=== PATIENT | female | born 1940 | race Caucasian/White ===

== ENCOUNTER 2016-12-10 14:43 | Emergency (ER) | payer MEDICARE ==
[2016-12-10] MEDS ORDERED: SODIUM CHLORIDE 0.9% 1,000 ML IV ONE (16:24)
[2016-12-10] MEDS ORDERED: INSULIN REGULAR HUMAN 100 UNIT/1 ML 10 ML MDV IVP STA ×2 (16:24→17:48)
[2016-12-10] MEDS ORDERED: INSULIN REGULAR HUMAN 100 UNIT/1 ML 10 ML MDV ONE ×2 (16:51→17:51)
[2016-12-10] MEDS ORDERED: SODIUM CHLORIDE 0.9% 500 ML IV ONE (17:48)
== END 2016-12-10 19:30 | disposition home or self-care (01) ==
DX: E11.65 Type 2 diabetes mellitus with hyperglycemia (principal); E11.22 Type 2 diabetes mellitus with diabetic chronic kidney disease; I12.9 Hypertensive chronic kidney disease with stage 1 through stage 4 chronic kidney disease, or unspecified chronic kidney disease; E11.40 Type 2 diabetes mellitus with diabetic neuropathy, unspecified; N18.9 Chronic kidney disease, unspecified; Z79.4 Long term (current) use of insulin; T38.3X6A Underdosing of insulin and oral hypoglycemic [antidiabetic] drugs, initial encounter; Z91.128 Patient's intentional underdosing of medication regimen for other reason; M79.7 Fibromyalgia; G47.00 Insomnia, unspecified
CPT/HCPCS: 36415; 80053; 81003; 82009; 82803; 83690; 85025; 96360; 99284; J1815

== ENCOUNTER 2017-04-08 10:47 | Outpatient (CLI) | payer MEDICARE ==
--- NOTE | 2017-04-08 12:36 | MRI Report ---
EXAM: MRI BRAIN WITHOUT CONTRAST EXAM DATE: 04/08/2017 11:52 AM. CLINICAL HISTORY: 76-year-old with progressive memory loss COMPARISON: None. TECHNIQUE: Multiplanar, multisequence T1-weighted and fluid-sensitive MR sequences of the brain were performed. Sequences optimized for routine evaluation. Other: None. IV Contrast: None. FINDINGS: Brain Volume: Normal for age. Parenchyma/Dura: No acute parenchymal hemorrhage, mass, or midline shift. There is mild bilateral are as of T2/FLAIR signal hyperintensity seen. No areas restricted diffusion to suggest acute infarct. Th ere is gyriform cortical susceptibility artifact seen along the sulci of the bilateral frontal lobes representing cortical superficial hemosiderosis. No other abnormal areas of parenchyma susceptibility artifact seen. Pituitary: Unremarkable. Ventricles/Cisterns: No definite abnormal extra-axial fluid collection/mass seen. Ventricles and sulc i appear prominent but appropriate fixative volume loss. Cisterns are patent. Fluid is seen within Me ckel's caves. Visualized internal auditory canals appear clear. Sinuses: The visualized paranasal sinuses, mastoid air cells, middle ear cavities appear clear. Orbits: Unremarkable. Bones: Changes of hyperostosis frontalis internus. Other: The visualized major intracranial flow voids appear maintained. IMPRESSION: 1. No acute infarct, intracranial hemorrhage, mass, or hydrocephalus. 2. 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 3. Mild white matter changes that may represent sequela of chronic small vessel ischemic disease. [facility] Referring Provider Line: [phone] SITE ID: [id number]
== END 2017-04-08 10:48 | disposition home or self-care (01) ==
LOC: DI 10:47
PROVIDERS: ATTEND Family Medicine
DX: R41.3 Other amnesia (principal)
CPT/HCPCS: 70551

== ENCOUNTER 2018-04-25 07:19 | Outpatient (CLI) | payer MEDICARE | END 2018-04-25 07:20 | disposition critical access hospital (66) | LOC: EMS 07:19 | PROVIDERS: ATTEND Surgery | DX: S01.111A Laceration without foreign body of right eyelid and periocular area, initial encounter (principal); R73.09 Other abnormal glucose; W18.30XA Fall on same level, unspecified, initial encounter; Y92.098 Other place in other non-institutional residence as the place of occurrence of the external cause | CPT/HCPCS: A0425; A0429 ==

== ENCOUNTER 2018-04-25 07:46 | Emergency (ER) | payer MEDICARE ==
[2018-04-25] MEDS ORDERED: ACETAMINOPHEN 325 MG TABLET PO STA (07:54)
[2018-04-25] MEDS ORDERED: LIDOCAINE-EPINEPH-TETRACAINE 3 ML SYRINGE TOP STA (07:54)
[2018-04-25 08:03] LABS: BASOPHILS # (AUTO) 0.1 10^3/uL (0.0-0.1); BASOPHILS % (AUTO) 0.7 %; EOSINOPHILS # (AUTO) 0.1 10^3/uL (0.0-0.7); EOSINOPHILS % (AUTO) 0.6 %; HGB - HEMOGLOBIN 13.4 g/dL (12.0-16.0); LYMPHOCYTES # (AUTO) 1.8 10^3/uL (1.5-3.5); LYMPHOCYTES % (AUTO) 19.1 %; MEAN CORPUSCULAR HEMOGLOBIN 30.8 pg (27.0-31.0); MEAN CORPUSCULAR HGB CONC 33.6 g/dL (32.0-36.0); MEAN CORPUSCULAR VOLUME 91.8 fL (81.0-99.0); MEAN PLATELET VOLUME 7.8 fL (7.9-10.8); MONOCYTES # (AUTO) 0.8 10^3/uL (0.0-1.0); MONOCYTES % (AUTO) 8.3 %; NEUTROPHILS # (AUTO) 6.7 10^3/uL (1.5-6.6); NEUTROPHILS % (AUTO) 71.3 %; PLT - PLATELET COUNT 139 10^3/uL (130-450); RED BLOOD COUNT 4.35 10^6/uL (4.20-5.40); RED CELL DISTRIBUTION WIDTH 12.8 % (12.0-15.0); WHITE BLOOD COUNT 9.4 x10^3/uL (4.8-10.8)
[2018-04-25 08:07] LABS: CALCIUM 9.1 mg/dL (8.5-10.3)
--- NOTE | 2018-04-25 08:08 | ED Physician Documentation ---
History of Present Illness - Stated complaint Stated Complaint: GLF - Chief complaint Chief Complaint: Trauma Hd/Nk - Additonal information Additional information: hx from pt and EMS 77 f fall this AM and hit her head no LOC pt not sure why she fell but she is IDDM and her glucose was 67 per EMS so that is likely contributing cause lac to R brown and periorbital ecchymosis eye swollen shut always has neck pain no numbness or weakness no chest abd back hip or ext pain no recent illness such as fever cough NVD pt finally gave a urine sample shortly before [facility] came to pick her up - it was later resulted + - I called [facility] and spoke to staff Mariaelena to update her and faxed new dc instructions and rx to [facility] Hernandez Review of Systems Constitutional: denies: Fever, Chills Cardiac: denies: Chest pain / pressure Respiratory: denies: Dyspnea GI: denies: Abdominal Pain, Nausea, Vomiting : denies: Dysuria Musculoskeletal: reports: Neck pain (chronic) Neurologic: reports: Headache, Head injury. denies: Focal weakness, Numbness Endocrine: denies: Easy bruising / bleeding Immunocompromised: denies: Immunocompromised PD PAST MEDICAL HISTORY - Past Medical History Past Medical History: Yes Endocrine/Autoimmune: Type 2 diabetes - Past Surgical History Past Surgical History: Yes General: Appendectomy - Present Medications Home Medications: Ambulatory Orders Medication Instructions Recorded Confirmed Atorvastatin Calcium 1 tab PO DAILY 04/25/18 04/25/18 Cephalexin [Keflex] 500 mg PO Q6H #28 capsule 04/25/18 Cholecalciferol (Vitamin D3) 2 tab PO DAILY 04/25/18 04/25/18 [Vitamin D3] Citalopram [CeleXA] 1 tab PO DAILY 04/25/18 04/25/18 Insulin Glargine [Lantus Solostar] 47 units SQ QPM 04/25/18 04/25/18 Insulin Glargine [Lantus Solostar] 52 unit SQ DAILY 04/25/18 04/25/18 L. Acidophilus/Pectin, [place] 2 cap PO DAILY 04/25/18 04/25/18 [Acidophilus-Pectin Captab] Lisinopril 1 tab PO DAILY 04/25/18 04/25/18 Melatonin 1 tab PO QPM 04/25/18 04/25/18 Pramipexole Di-HCl [Mirapex] 1 tab PO QPM 04/25/18 04/25/18 Progesterone,Micronized 2 drops PO BID 04/25/18 04/25/18 [Progesterone Micronized] Thyroid,Pork [[place] Thyroid] 2 tab PO DAILY 04/25/18 04/25/18 Trospium Chloride 1 tab PO BID 04/25/18 04/25/18 - Allergies Allergies/Adverse Reactions: Allergies Allergy/AdvReac Type Severity Reaction Status Date / Time clindamycin Allergy Unknown Verified 04/25/18 07:52 desipramine Allergy Unknown Verified 04/25/18 07:52 nortriptyline Allergy Unknown Verified 04/25/18 07:52 oxybutynin Allergy Unknown Verified 04/25/18 07:52 Sulfa (Sulfonamide Allergy Unknown Verified 04/25/18 07:52 Antibiotics) - Social History Does the pt smoke?: No Smoking Status: Never smoker Does the pt drink ETOH?: Yes Does the pt have substance abuse?: No - Immunizations Immunizations are current?: Yes PD ED PE NORMAL - Vitals Vital signs reviewed: Yes - General General: Alert and oriented X 3 - HEENT HEENT: PERRL (R upper eyelid massivly ecchymotic and swollen but when lids retracted globe is intact PERRL EOMI, no hyphema, + vision) - Neck Neck: Other (mild diffuse TTP which pt feels is chronic but given mech of injru and glucose still < 70 will image) - Cardiac Cardiac: RRR - Respiratory Respiratory: No respiratory distress, Clear bilaterally - Abdomen Abdomen: Soft, Non tender - Back Back: No spinal TTP - Derm Derm: Normal color - Extremities Extremities: No deformity, No tenderness to palpate, Normal ROM s pain - Neuro Neuro: Alert and oriented X 3 Eye Opening: Spontaneous Motor: Obeys Commands Verbal: Oriented GCS Score: 15 Results - Vitals Vitals: Vital Signs - 24 hr 04/25/18 04/25/18 07:47 10:15 Temperature 36.8 C Heart Rate 90 81 Respiratory 18 16 Rate Blood Pressure 126/58 L 110/49 L O2 Saturation 98 99 Oxygen O2 Source Room air - Labs Labs: Laboratory Tests 04/25/18 04/25/18 04/25/18 07:50 07:50 07:50 WBC 9.4 RBC 4.35 Hgb 13.4 Hct 39.9 MCV 91.8 MCH 30.8 MCHC 33.6 RDW 12.8 Plt Count 139 MPV 7.8 L Neut # (Auto) 6.7 H Lymph # (Auto) 1.8 [place] # (Auto) 0.8 Eos # (Auto) 0.1 Baso # (Auto) 0.1 Absolute Nucleated RBC 0.00 Nucleated RBC % 0.0 PT 12.6 INR 1.1 Sodium 141 Potassium 3.7 Chloride 106 Carbon Dioxide 29 Anion Gap 6.0 BUN 28 H Creatinine 1.0 Estimated GFR (MDRD) 54 L Glucose 105 H Calcium 9.1 Troponin I Urine Color Urine Clarity Urine pH Ur Specific [place] Urine Protein Urine Glucose (UA) Urine Ketones Urine Occult Blood Urine Nitrite Urine Bilirubin Urine Urobilinogen Ur Leukocyte Esterase Urine RBC Urine WBC Urine WBC Clumps Ur Squamous Epith Cells Urine Bacteria Ur Microscopic Review Urine Culture Comments 04/25/18 04/25/18 07:50 13:30 WBC RBC Hgb Hct MCV MCH MCHC RDW Plt Count MPV Neut # (Auto) Lymph # (Auto) [place] # (Auto) Eos # (Auto) Baso # (Auto) Absolute Nucleated RBC Nucleated RBC % PT INR Sodium Potassium Chloride Carbon Dioxide Anion Gap BUN Creatinine Estimated GFR (MDRD) Glucose Calcium Troponin I < 0.04 Urine Color YELLOW Urine Clarity CLOUDY Urine pH 6.5 Ur Specific [place] 1.015 Urine Protein NEGATIVE Urine Glucose (UA) NEGATIVE Urine Ketones NEGATIVE Urine Occult Blood TRACE-LYSE Urine Nitrite POSITIVE H Urine Bilirubin NEGATIVE Urine Urobilinogen 1 (NORMAL) Ur Leukocyte Esterase LARGE H Urine RBC TNTC H Urine WBC >25 H Urine WBC Clumps PRESENT Ur Squamous Epith Cells RARE Squamous Urine Bacteria Many H Ur Microscopic Review INDICATED Urine Culture Comments INDICATED - Rads (name of study) CTH Radiology: See rad report (no acute ICH or skull fx) CT facial Radiology: See rad report (R periorbital STS no fx no retrobulbar hematoma) CT CS Radiology: See rad report (no fx, degen changes) Procedures - Laceration (location) face Length in cm: 2 Wound type: Linear Neurovascular status: Sensory intact, Motor intact Anesthesia: LET Wound Preparation: Irrigated copiously NS (tech) Skin layer closure: Dermabond Other: Patient tolerated well, Tetanus UTD Complexity: Simple PD MEDICAL DECISION MAKING - ED course ED course: pt on insulin no orals, no diabetic meds given today, blood sugar better after oral glucose and given food in ED wounds repaired CTs neg for acute injury pt finally gave a UA shortly before [facility] staff came to pick her up - it is + - recommed keflex 500 QID for 7 days - added to dc instructions so can print rx and will ask staff to fax to jessenia [place] - Sepsis Event Vital Signs: Vital Signs - 24 hr 04/25/18 04/25/18 07:47 10:15 Temperature 36.8 C Heart Rate 90 81 Respiratory 18 16 Rate Blood Pressure 126/58 L 110/49 L O2 Saturation 98 99 Oxygen O2 Source Room air Departure - Departure Disposition: 01 Home, Self Care Clinical Impression: Hypoglycemia Fall Qualifiers: Encounter type: initial encounter Qualified Code(s): W19.XXXA - Unspecified fall, initial encounter Head injury Qualifiers: Encounter type: initial encounter Qualified Code(s): S09.90XA - Unspecified injury of head, initial encounter Facial laceration Qualifiers: Encounter type: initial encounter Qualified Code(s): S01.81XA - Laceration without foreign body of other part of head, initial encounter UTI (urinary tract infection) Qualifiers: Urinary tract infection type: site unspecified Hematuria presence: without hematuria Qualified Code(s): N39.0 - Urinary tract infection, site not specified Condition: Good Instructions: ED Head Injury Closed Sleep Mon, ED Diabetes Hypoglycemia Insulin React, ED Laceration Facial Skin Glue, ED UTI Cystitis Female Follow-Up: Vika Isaacs, [facility] [employer] [Primary Care Provider] - (needs a repeat UA after completion of antibiotics to ensure blood and infection have cleared) Prescriptions: Cephalexin [Keflex] 500 mg PO Q6H #28 capsule Comments: I believe you fell because your blood sugars were low They are back up now and you have eaten Please monitor the blood sugars extra carefully for the next few days and if you are running low again call PMD to discuss changing medication doses The wound was repaired with skin glue - it is fine to bathe but do not apply any ointment because that will cause the glue to dissolve. Please read over the head injury precautions and stay with a responsible adult who check your frequently for the next 2 days - return if worse Your eyeball seems fine now but odalis follow up with your PMD for an eye recheck to make sure no blood is accumulating in the anterior chamber or behind the eyeball - tomorrow or after the holiday - also discuss your blood sugars Discharge Date/Time: 04/25/18 13:30
[2018-04-25 08:12] LABS: INR 1.1 (0.8-1.2); PT - PROTHROMBIN TIME 12.6 secs (9.9-12.6)
--- NOTE | 2018-04-25 08:32 | CT Report ---
Procedure Date: 04/25/2018 Accession Number: [id number] / [id number] Procedure: CT - Head W/O CPT Code: FULL RESULT: EXAM: CT HEAD EXAM DATE: 04/25/2018 08:16 AM. CLINICAL HISTORY: Fall, head injury. Swelling and bruising to right eye. COMPARISON: MRI BRAIN W/O 04/08/2017. TECHNIQUE: Multiaxial CT images were obtained from the foramen magnum to the vertex. Reformats: Coronal. IV contrast: None. In accordance with CT protocol optimization, one or more of the following dose reduction techniques were utilized for this exam: automated exposure control, adjustment of mA and/or KV based on patient size, or use of iterative reconstructive technique. FINDINGS: Parenchyma: No intraparenchymal hemorrhage. No evidence of mass, midline shift, or CT findings of acute infarction. Wagoner-white differentiation is distinct. Diffuse chronic microangiopathic white matter changes are evident. Extraaxial Spaces: Normal for age. No subdural or epidural collections identified. Ventricles: The ventricles and cortical sulci are enlarged, consistent with age-related tissue loss. Sinuses and orbits: Imaged paranasal sinuses, orbits, and mastoids show no significant abnormality. Bones: No evidence of fracture or calvarial defect. Other: There is superficial soft tissue swelling in the right periorbital region. IMPRESSION: 1. Generalized age-related cortical atrophic changes without evidence of acute intracranial abnormality. 2. Superficial soft tissue swelling in the right periorbital region. No intraorbital abnormality. Please see report of maxillofacial CT performed at the same time for additional detail. [facility]
--- NOTE | 2018-04-25 08:40 | CT Report ---
Procedure Date: 04/25/2018 Accession Number: [id number] / [id number] Procedure: CT - Cervical Spine W/O CPT Code: FULL RESULT: EXAM: CT CERVICAL SPINE WITHOUT CONTRAST DATE: 04/25/2018 08:16 AM. HISTORY: Fall, head injury. COMPARISONS: None. TECHNIQUE: Thin-section axial images were acquired of the cervical spine without contrast. Post-processing: Coronal and sagittal reformats. Other: None. In accordance with CT protocol optimization, one or more of the following dose reduction techniques were utilized for this exam: automated exposure control, adjustment of mA and/or KV based on patient size, or use of iterative reconstructive technique. FINDINGS: Alignment: There is straightening of normal cervical lordosis. There is grade 1 anterolisthesis of C2 on C3 measuring 2 mm and grade 1 anterolisthesis of C3 on C4 measuring 3 mm, likely degenerative. Bones: No fracture or bone lesion. Interspace Levels/Facets: C1-C2: Moderate to severe degenerative changes. C2-C3: Mild degenerative disk change and severe bilateral degenerative facet changes. C3-C4: Mild degenerative disk change and severe bilateral degenerative facet change. There is moderate left neural foraminal narrowing. C4-C5: Mild degenerative disk change and severe left degenerative facet change. There is moderate left neural foraminal narrowing. C5-C6: Severe degenerative disk change and moderate bilateral degenerative facet changes. There is moderate bilateral neural foraminal narrowing. C6-C7: Severe degenerative disk change and moderate bilateral degenerative facet change. There is moderate bilateral neural foraminal narrowing. C7-T1: Mild degenerative disk change and mild bilateral degenerative facet change. Musculature: Normal. No fatty atrophy. Other: The paravertebral and prevertebral soft tissues are unremarkable. The lung apices are clear. IMPRESSION: 1. No fracture or acute osseous abnormality identified. 2. Moderate to severe multilevel degenerative changes of the cervical spine. There is moderate neural foraminal narrowing at multiple levels bilaterally. Grade 1 anterolisthesis of C2 on C3 and C3 on C4 is likely degenerative. [facility]
--- NOTE | 2018-04-25 08:47 | CT Report ---
Procedure Date: 04/25/2018 Accession Number: [id number] / [id number] Procedure: CT - Facial Bones W/O CPT Code: FULL RESULT: EXAM: CT MAXILLOFACIAL WITHOUT CONTRAST EXAM DATE: 04/25/2018 08:16 AM. CLINICAL HISTORY: Fall, R orbit injury. COMPARISONS: CT head without contrast performed at same time. TECHNIQUE: Thin-section axial images were acquired of the face without contrast. Post-processing: Coronal and sagittal reformats. Other: None. In accordance with CT protocol optimization, one or more of the following dose reduction techniques were utilized for this exam: automated exposure control, adjustment of mA and/or KV based on patient size, or use of iterative reconstructive technique. FINDINGS: Soft Tissue: There is superficial soft tissue swelling in the right periorbital region. The infratemporal fossa and parapharyngeal spaces are unremarkable. Orbits: Symmetric and unremarkable. No retroseptal fluid or edema. Bones: No fracture or bone lesion. Temporomandibular Joints: The temporomandibular joints are symmetric and normally located. Sinuses: Normal. No mucosal thickening or fluid levels. Other: None. IMPRESSION: No facial fracture identified. There is superficial soft tissue swelling in the right periorbital region. No retroseptal fluid or edema. [facility]
[2018-04-25 10:17] VITALS: BP 110/49
[2018-04-25 13:56] LABS: BILIRUBIN,URINE NEGATIVE (NEGATIVE); GLUCOSE, URINE (UA) NEGATIVE (NEGATIVE); KETONES,URINE (UA) NEGATIVE (NEGATIVE); LEUKOCYTE ESTERASE, URINE LARGE (NEGATIVE); NITRITE,URINE POSITIVE (NEGATIVE); OCCULT BLOOD,URINE TRACE-LYSE (NEGATIVE); PH,URINE 6.5 PH (5.0-7.5); PROTEIN,URINE NEGATIVE (NEGATIVE); UROBILINOGEN,URINE 1 (NORMAL) E.U./dL (NORMAL)
[2018-04-25 13:57] LABS: CLARITY,URINE CLOUDY (CLEAR)
[2018-04-25 14:03] LABS: WBC CLUMPS,URINE PRESENT
[2018-04-25 14:04] LABS: BACTERIA,URINE Many /HPF (None Seen); RBC,URINE TNTC /HPF (0-5); SQUAMOUS EPITHELIAL CELL,UR RARE Squamous (<= Few)
== END 2018-04-25 13:30 | disposition home or self-care (01) ==
LOC: EDUNIT# → ED 07:46
DX: E11.649 Type 2 diabetes mellitus with hypoglycemia without coma (principal); S09.90XA Unspecified injury of head, initial encounter; S01.111A Laceration without foreign body of right eyelid and periocular area, initial encounter; Z79.4 Long term (current) use of insulin; W18.30XA Fall on same level, unspecified, initial encounter
CPT/HCPCS: 12011; 36415; 70450; 70486; 72125; 80048; 81001; 84484; 85025; 85610; 87086; 87181; 99283; 99284; A9270; 81003

== ENCOUNTER 2018-07-04 16:03 | Outpatient (CLI) | payer MEDICARE ==
--- NOTE | 2018-07-04 16:58 | XRAY Report ---
Reason: ACUTE SPRAIN OF LT MIDDLE FINGERS HAND LT Procedure Date: 07/04/2018 Accession Number: [id number] / [id number] Procedure: XR - Finger(s) LT CPT Code: FULL RESULT: EXAM: LEFT THIRD AND FOURTH DIGIT RADIOGRAPHY EXAM DATE: 07/04/2018 04:46 PM. CLINICAL HISTORY: ACUTE SPRAIN OF LT MIDDLE FINGERS HAND LT. COMPARISON: None. TECHNIQUE: 3 views. FINDINGS: There is dorsal and medial dislocation of the third and fourth middle phalanges relative to the proximal phalanges. There are small osseous fragments adjacent to the distal third and fourth proximal phalanges. No additional findings suspicious for fracture. Mild soft tissue swelling. IMPRESSION: Third and fourth proximal interphalangeal joint dislocation with possible small avulsion fractures. [facility]
== END 2018-07-04 16:04 | disposition home or self-care (01) ==
LOC: DI 16:03
PROVIDERS: ATTEND Family Medicine
DX: S63.283A Dislocation of proximal interphalangeal joint of left middle finger, initial encounter (principal); S63.285A Dislocation of proximal interphalangeal joint of left ring finger, initial encounter; S63.613A Unspecified sprain of left middle finger, initial encounter; S63.615A Unspecified sprain of left ring finger, initial encounter
CPT/HCPCS: 73140

== ENCOUNTER 2018-07-04 16:58 | Emergency (ER) | payer MEDICARE ==
[2018-07-04 17:27] VITALS: BP 149/66
[2018-07-04] MEDS ORDERED: BUFFERED LIDOCAINE 10 ML SYRINGE ONE (17:41)
--- NOTE | 2018-07-04 17:47 | ED Physician Documentation ---
PD HPI UPPER EXT INJURY - Stated complaint Stated Complaint: FINGER INJURIES - Chief complaint Chief Complaint: Ext Problem - History obtained from History obtained from: Patient, Caregiver - History of Present Illness Location: Left (Right-handed woman had a slip and fall and jammed her third and fourth fingers of the left hand against a door frame today. Had outpatient x- rays showing third and fourth PIP dislocations with possible small avulsion fractures and she was referred to the emergency department for reduction and splinting.) Review of Systems Unable to obtain: Dementia PD PAST MEDICAL HISTORY - Past Medical History Past Medical History: Yes Neuro: Dementia Endocrine/Autoimmune: Type 2 diabetes - Past Surgical History Past Surgical History: Yes General: Appendectomy - Present Medications Home Medications: Ambulatory Orders Medication Instructions Recorded Confirmed Atorvastatin Calcium 1 tab PO DAILY 04/25/18 04/25/18 Cephalexin [Keflex] 500 mg PO Q6H #28 capsule 04/25/18 Cholecalciferol (Vitamin D3) 2 tab PO DAILY 04/25/18 04/25/18 [Vitamin D3] Citalopram [CeleXA] 1 tab PO DAILY 04/25/18 04/25/18 Insulin Glargine [Lantus Solostar] 47 units SQ QPM 04/25/18 04/25/18 Insulin Glargine [Lantus Solostar] 52 unit SQ DAILY 04/25/18 04/25/18 L. Acidophilus/Pectin, [place] 2 cap PO DAILY 04/25/18 04/25/18 [Acidophilus-Pectin Captab] Lisinopril 1 tab PO DAILY 04/25/18 04/25/18 Melatonin 1 tab PO QPM 04/25/18 04/25/18 Pramipexole Di-HCl [Mirapex] 1 tab PO QPM 04/25/18 04/25/18 Progesterone,Micronized 2 drops PO BID 04/25/18 04/25/18 [Progesterone Micronized] Thyroid,Pork [[place] Thyroid] 2 tab PO DAILY 04/25/18 04/25/18 Trospium Chloride 1 tab PO BID 04/25/18 04/25/18 - Allergies Allergies/Adverse Reactions: Allergies Allergy/AdvReac Type Severity Reaction Status Date / Time clindamycin Allergy Unknown Verified 04/25/18 07:52 desipramine Allergy Unknown Verified 04/25/18 07:52 nortriptyline Allergy Unknown Verified 04/25/18 07:52 oxybutynin Allergy Unknown Verified 04/25/18 07:52 Sulfa (Sulfonamide Allergy Unknown Verified 04/25/18 07:52 Antibiotics) - Social History Does the pt smoke?: No Smoking Status: Never smoker Does the pt drink ETOH?: Yes Does the pt have substance abuse?: No - Immunizations Immunizations are current?: Yes PD ED PE NORMAL - Vitals Vital signs reviewed: Yes - General General: Other (She is alert and cooperative but fairly demented) - Extremities Extremities: Other (She has dorsal deformities of the third and fourth left fingers at the level of the PIP and quite tender in that area. Normal cap refill and sensation at the tip.) - Psych Psych: Normal mood, Normal affect Results - Vitals Vitals: Vital Signs - 24 hr 07/04/18 17:20 Temperature 36.8 C Heart Rate 78 Respiratory 18 Rate Blood Pressure 149/66 H O2 Saturation 100 Oxygen O2 Source Room air Procedures - Reduction Body part reduced: Left, Finger (3rd/4th at PIP) Anesthesia: Digital block (with buffered lidocaine 1% no epi) Reduction aftercare: NV intact, Alignment improved, Splint applied (dorsal 2" finberglass), Patient tolerated well PD MEDICAL DECISION MAKING - Sepsis Event Vital Signs: Vital Signs - 24 hr 07/04/18 17:20 Temperature 36.8 C Heart Rate 78 Respiratory 18 Rate Blood Pressure 149/66 H O2 Saturation 100 Oxygen O2 Source Room air Departure - Departure Disposition: 01 Home, Self Care Clinical Impression: Dislocation of left middle finger Qualifiers: Encounter type: initial encounter Qualified Code(s): S63.253A - Unspecified dislocation of left middle finger, initial encounter Dislocation of left ring finger Qualifiers: Encounter type: initial encounter Qualified Code(s): S63.255A - Unspecified dislocation of left ring finger, initial encounter Condition: Good Record reviewed to determine appropriate education?: Yes Instructions: ED Dislocation Finger Redu Follow-Up: Cristian Allen DO [Provider Admit Priv/Credential] - Comments: Keep the splint on and dry and follow-up with Dr. Allen in a week. Your blood pressure was elevated today on check into the emergency department. This does not mean that you have hypertension, it is a common phenomenon to come to the emergency department and have elevated blood pressure. I recommend that you see your primary care physician within the week to have it rechecked when you are feeling better.
== END 2018-07-04 17:59 | disposition home or self-care (01) ==
LOC: ED 16:58
DX: S63.283A Dislocation of proximal interphalangeal joint of left middle finger, initial encounter (principal); S63.285A Dislocation of proximal interphalangeal joint of left ring finger, initial encounter; S63.613A Unspecified sprain of left middle finger, initial encounter; S63.615A Unspecified sprain of left ring finger, initial encounter; W23.0XXA Caught, crushed, jammed, or pinched between moving objects, initial encounter; W01.10XA Fall on same level from slipping, tripping and stumbling with subsequent striking against unspecified object, initial encounter; Y92.009 Unspecified place in unspecified non-institutional (private) residence as the place of occurrence of the external cause; E11.9 Type 2 diabetes mellitus without complications; R03.0 Elevated blood-pressure reading, without diagnosis of hypertension; F03.90 Unspecified dementia, unspecified severity, without behavioral disturbance, psychotic disturbance, mood disturbance, and anxiety
CPT/HCPCS: 26770; 73140; 99283

== ENCOUNTER 2020-01-22 11:20 | Outpatient (CLI) | payer MEDICARE ==
--- NOTE | 2020-01-22 14:50 | CONSULTATION NOTE ---
Palliative Care Consultation - Referral Referring Provider: Dr. Cristian Allen Time of Visit: [id number] Referral setting: Assisted living ([facility]) - Information Sources Records reviewed: Previous records reviewed History/Review of Systems obtained from: Patient, Family (ydzgntl-em-ixc/DPOA Catalino More), Caregiver, Nursing Exam limitations: Clinical condition (poor historian due to dementia) - History of Present Illness Brief History of Present Illness: This is a 79-year-old female who resides at [facility] who was seen and evaluated today for initial palliative care consultation due to her advancing dementia and difficulty to leave the facility to attend primary care physician appointments. The patient has a standing history of dementia, unclear how long this is been diagnosed, and she has had progressive cognitive loss per her tcfkfun-js-kkr/D FLORA Bae. When the patient's was still living, Catalino reported that the patient was aware that she was beginning to lose her memory and at times will lose the thread of story in the course of a conversation. The patient's became acutely ill and at that time it became quite apparent during his hospitalization that she was unable to care for herself. Ultimately the patient's spouse was discharged from the hospital with hospice services with 24-hour caregiving for both himself and the patient prior to his . After the patient's spouse's she relocated to [facility] where she did very well for the first year and then her caregiving needs increased. Per her ypoytvw-tq-gfe/D BRYNNVeena Bae she began falling increasingly. At that time she was then transitioned to [facility] for additional caregiving needs in April 2018. The patient's kcjggrw-ja-jqg, Catalino, reports that the patient initially had depressive symptoms after the of her but recently in the last few months when he is visited reports that she has been in better spirits. She no longer remembers her bbuccwz-yc-jsx when he visits she will get easily distracted. Even when recent longtime friends visited the patient she did not recall them visiting her who they were. The staff reports that the patient will have outbursts of agitation and aggression. She at times will grab the caregivers hand tightly or will lash out with a fist that is shaking. Overall she is quick to have anger which occurs almost daily. This is been going on for approximately 1 year, and at that initial onset her citalopram dose was increased to 20 mg daily. The staff have noticed an overall increase in the patient's agitation and aggression over the last year. She will also refuse a lot with the caregiving staff for showering and incontinent care. Of note she is quite agreeable and does not resist with the male tech. The patient has a history of type 2 diabetes and is presently managed on Lantus 35 units subcutaneously administered twice daily. At times she will be resistant to subcutaneous injections but again will be receptive to a male family practice medical doctor administering. Upon review of blood glucose levels the patient has had some noted lows in the morning. She has had an episode of the lowest of 35 noted on 01/02. She also has had an episode of 74, 91, and 90 3 in the morning. Her blood glucose levels prior to bed have ranged 122 197. Her last hemoglobin A1c on 12/07/2019 was 6.2%. The patient has had some weight loss since July 2019 from 216 pounds to 209.2 pounds in December 2019. She does have a history of some lower extremity edema and is on Lasix daily. Some of the fluctuation of her weight is likely due to her edema. Staff reports that she has a good appetite. She is on a diabetic diet. Medical/Surgical History - Past Medical History Cardiovascular: reports: Hypertension, High cholesterol Respiratory: reports: None Neuro: Dementia Neuro: reports: Peripheral neuropathy Endocrine/Autoimmune: reports: Type 2 diabetes, HyPOthyroidism GI: reports: None : reports: Incontinence, Other (CKD; Overactive bladder) HEENT: reports: None Psych: reports: Depression, Other (Insomnia) Musculoskeletal: reports: Fibromyalgia, Other (Spinal stenosis) Other Past Medical History: h/o ITP - Past Surgical History General: reports: Appendectomy - Substance History Use: Uses substance without health or social issues: NONE Social History - Living Situation Living arrangement: Assisted living Support System: The patient grew up in the [facility]. She was for over a 50 years to her who is now . They had no children. Her on hospice services. The patient's nhfhewr-lc-nei is her D POA, Catalino rosado ([phone]). 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 She and her spent most weekends along the [place] where they would go hiking, mushrooming and the patient would do photography. Later in life she picked up an interest in gym stones and collecting those. Overall she and her would load up their pickup camper and would go out into the wilderness per her fchuxib-tl-wkp's report. The patient was an only child to her parents with no siblings. Her brother in law of reports that she was a "spoiled suzanne" and was also quite "a looker." Family History - Family History Family History: Mother: , Father: Family History Comment/Other: Father-alcoholism Mother-dementia, in 80s Medications/Allergies - Medications Home Medications: Ambulatory Orders Medication Instructions Recorded Confirmed Atorvastatin Calcium 40 mg PO DAILY 04/25/18 01/22/20 Citalopram [CeleXA] 20 mg PO DAILY 04/25/18 01/22/20 L. Acidophilus/Pectin, [place] 2 cap PO DAILY 04/25/18 01/22/20 [Acidophilus-Pectin Captab] Trospium Chloride 20 mg PO BID 04/25/18 01/22/20 lisinopriL [Lisinopril] 1 tab PO DAILY 04/25/18 01/22/20 Acetaminophen [Tylenol] 650 mg PO Q6H PRN 01/22/20 01/22/20 Albuterol Sulfate [Albuterol 1 puffs IN Q4H PRN 01/22/20 01/22/20 Sulfate Hfa] Bisacodyl Supp [Dulcolax Supp] 10 mg NE DAILY PRN 01/22/20 01/22/20 Cholecalciferol (Vitamin D3) 2,000 unit PO DAILY 01/22/20 01/22/20 [Vitamin D3] Furosemide 20 mg PO DAILY 01/22/20 01/22/20 Guaifenesin/Dextromethorphan 10 ml PO Q6H PRN 01/22/20 01/22/20 [Guaifenesin-Dm 100-10 mg/5 ml] Ibuprofen 200 mg PO TID PRN 01/22/20 01/22/20 Insulin Glargine [Lantus Solostar] 32 units SQ QPM 01/22/20 01/22/20 Insulin Glargine [Lantus Solostar] 35 units SQ QDAC 01/22/20 01/22/20 Loperamide HCl [Loperamide] PRN 01/22/20 Mag Hydrox/Aluminum Hyd/Simeth 30 ml PO Q4H PRN 01/22/20 01/22/20 [Antacid Anti-Gas Liquid] Magnesium Citrate 150 ml PO DAILY PRN 01/22/20 01/22/20 Magnesium Hydroxide [Milk of 30 ml PO DAILY PRN MDD No BM after 01/22/20 01/22/20 Magnesia] 3 days Pramipexole Di-HCl [Mirapex] 0.125 mg PO QPM 01/22/20 01/22/20 Thyroid,Pork [[place] Thyroid] 90 mg PO DAILY 01/22/20 01/22/20 Trazodone HCl 25 mg PO QPM 01/22/20 01/22/20 - Allergies Allergies/Adverse Reactions: Allergies Allergy/AdvReac Type Severity Reaction Status Date / Time clindamycin Allergy Unknown Verified 01/22/20 15:56 desipramine Allergy Unknown Verified 01/22/20 15:56 nortriptyline Allergy Unknown Verified 01/22/20 15:56 oxybutynin Allergy Unknown Verified 01/22/20 15:56 Sulfa (Sulfonamide Allergy Unknown Verified 01/22/20 15:56 Antibiotics) Review of Systems - Constitutional Constitutional: reports: Weight loss (weight 209.2lb 12/27/2019; 07/26/2019 weight 216lb). denies: Fever, Chills - Eyes Eyes: reports: Corrective lenses - Ears, Nose & Throat Ears, Nose & Throat: denies: Hearing loss - Cardiovascular Cardiovascular: reports: Edema. denies: Palpitations, Chest pain - Respiratory Respiratory: denies: Cough, Wheezing - Gastrointestinal Gastrointestinal: reports: Good appetite. denies: Abdominal pain, Constipation, Diarrhea, Vomiting - Genitourinary Genitourinary: reports: Incontinence. denies: Dysuria - Musculoskeletal Musculoskeletal: reports: Muscle weakness. denies: Assistive devices - Integumentary Integumentary: denies: Rash - Neurological Neurological: reports: General weakness, Memory problems - Psychiatric Psychiatric: reports: Depression, Aggitation - Endocrine Endocrine: reports: Diabetes type 2, Hypothyroidism - Hematologic/Lymphatic Hematologic/Lymphatic: denies: Recurrent infections - All Other Systems All Other Systems: reports: Reviewed and negative, Other (ROS limited as patient is a poor historian due to dementia. ROS obtained from caregiver and family.) Physical Exam - Vital Signs Temperature: 36.9 C Pulse Rate: 78 O2 Saturation: 96 (on RA at rest) Blood Pressure: 121/75 (right wrist cuff) - Physical Exam General Appearance: positive: No acute distress, Alert, Other (OOB in chair in common area with legs in dependent position) Eyes Bilateral: positive: Normal inspection ENT: positive: No signs of dehydration Neck: positive: No JVD Cardiovascular: positive: Regular rate & rhythm, No murmur Respiratory: positive: No respiratory distress, Breath sounds nml Abdomen: positive: Non-tender, Soft, Nml bowel sounds, Obese Skin: positive: Dryness (generalized) Extremities: positive: Full ROM, Other (+1 pitting BLE edema) Neurologic/Psychiatric: positive: Disoriented to place, Disoriented to time, Other (No agitation noted on examination, but easily distracted and unable to fully string together a conversation with [employer].) Palliative Care - POLST Patient has POLST: Yes POLST Status: DNR, Comfort Measures Pain: No pain (Patient has a history of fibromyalgia) Nausea: None Anorexia: None Depression: Mild (1-3) Sleep: Other (history of insomnia. will not sleep in her room and will sleep in chair in common area.) Constipation: No, Managed Performance Status: Patient remains ambulatory without assistive devices. Occasionally she wall hold the hands of caregivers during ambulation and there is standby assistance during ambulation. She is incontinent of urine and at times will refuse incontinence care. She is able to self feed. No recent falls. PPS score 60% - Palliative Care Discussion: The patient has had a steady cognitive decline that her dcvqlxe-ph-ynf/Leigh BRYNNCatalino Curiel is aware of and acknowledges. The patient does not have any immediate family therefore healthcare decisions fall to her uqncrtj-wf-afs Catalino. Catalino has experienced the loss of both his brother and his sister who were on hospice services. His sister was also followed by palliative care and he is familiar with the service and found great benefit from that additional care. He acknowledges that the patient can be easily agitated as she was a "spoiled suzanne" growing up as she was an only child" the apple of her parents I." He recognizes the transitions that have occurred from the patient living independently, [facility] and [facility] to [facility]. He is very pleased with the care that the patient has received at [facility] by the staff and both caregivers and nursing. In exploring goals of care he wishes to focus on making the patient comfortable. POLST in the patient's chart is a DN AR with limited interventions. POLST reviewed in light of the patient's D POA's desire for her to be comfortable and questions and answers addressed. POLST updated to be DN AR, comfort based interventions, antibiotics as needed for symptom management with no artificial nutrition. Results - Lab Results Lab results reviewed: Yes Lab and Imaging Results: 01/11/2020: WBC 7.5, H/H 14.643.2%, Plt 144 12/11/2019: WBC 7.2, H/H 13.4/39.9%, Plt 122, Sodium 144, Potassium 3.7, BUN 22, Cr 1.07, GFR 50, AST 16, ALT 20, Total cholesterol 83, HDL 30, LDL 37, HgA1C 6.2% Impression and Recommendations - Palliative Care Impression: This is a 79-year-old female who resides in assisted living with increasing cognitive decline secondary to dementia with a past medical history of hypertension, hyperlipidemia, and fibromyalgia, chronic kidney disease, type 2 diabetes, and neuropathy. She has some underlying depression that has been managed with citalopram but has outbursts of agitation and aggression towards staff and at times other residents. Palliative care to continue to provide symptom management, anticipatory guidance, and advanced care planning. Recommendations/Counseling Done: 1. Dementia with behavioral disturbances. Chronic. Progressive. Supportive Care. Fall precautions. Given the patient's history of insomnia with agitation and aggression will initiated a low dose trazodone as a trial with 25mg in the evening. reviewed purpose, dose and side effects with uliznjv-jn-cvn/KAVIN Bae and in agreement for trial. The trazodone is an adjunct to citralopram. Advised may take 2-3 weeks to see effect of medication. Continue to redirect behaviors within the facility. Given the patient's advanced age, dementia and chronic co-morbities, a gradual decline is expected. 2. Diabetes Mellitus, Type II. Controlled. Noted blood glucose lows in the morning (see HPI for full details). Last HgA1C 6.2%. Decrease Lantus to 35unit qAM and 32 units qPM and hold if blood glucose level less than 100. Given patient's advanced age and risk for falls, wish to reduce hypoglycemic risk and reviewed with KAVIN/uqtsdvh-zo-vya, John. Goal HgA1C 7-8% given advanced age. 3. Depression. Controlled. Continue citralopram as ordered. 4. Insomnia. History of insomnia. D/c melatonin. start trazodone 25mg qhs. see Dx Dementia with behavioral disturbances for additional details. 5. BLE edema. Start weekly weights and notify if +/- of 3lb per week. Encourage BLE elevation when OOB every shift. Continue furosemide 20mg daily. Monitor and adjust diuretic therapy as needed for symptom management. 6. HLD. Controlled on atorvastatin, continue. As goals focused on comfort, consider discontinuation of statin therapy in the future given time to benefit and patient's life expectancy with no prior history of CVA or [place]. 7. Advance care planning. POLST reviewed and updated with amgjfiw-zi-und/Catalino PARRY. POLST to remain DN AR now with comfort measures, antibiotic therapy for symptom management, and no artificial nutrition by tube. Form signed by verbal consent and to be mailed to DPOA to be signed and returned given present coronavirus pandemic. Patient's Leigh HINES wishes to focus on making her life comfortable. Palliative care to continue to explore goals of care. Time Spent: Total time spent 60 minutes with more than 50% of this spent in counseling and coordination of care with jonlftq-fs-qbl/Catalino VALE via phone in patient's presence and nursing staff; review of dementia progression; explaination of palliative philosophy; completion of POLST; review of symptom management and anticipatory guidance. disclaimer: The chart note was formulated using voice recognition technology and unfortunately sound alike errors may occur.
== END 2020-01-22 11:21 | disposition home or self-care (01) ==
LOC: PC 11:20
PROVIDERS: ATTEND Nurse Practitioner Family
DX: Z51.5 Encounter for palliative care (principal); F03.91 Unspecified dementia, unspecified severity, with behavioral disturbance; F32.9 Major depressive disorder, single episode, unspecified; R63.4 Abnormal weight loss; R60.0 Localized edema; R32 Unspecified urinary incontinence; E11.22 Type 2 diabetes mellitus with diabetic chronic kidney disease; I12.9 Hypertensive chronic kidney disease with stage 1 through stage 4 chronic kidney disease, or unspecified chronic kidney disease; N18.9 Chronic kidney disease, unspecified; E11.40 Type 2 diabetes mellitus with diabetic neuropathy, unspecified; E78.5 Hyperlipidemia, unspecified; R53.1 Weakness; E03.9 Hypothyroidism, unspecified; Z79.899 Other long term (current) drug therapy; Z79.4 Long term (current) use of insulin; Z66 Do not resuscitate

== ENCOUNTER 2020-01-30 12:30 | Outpatient (CLI) | payer MEDICARE ==
--- NOTE | 2020-01-30 17:51 | CONSULTATION NOTE ---
Palliative Care Follow Up - Referral Referring Provider: Dr. Cristian Allen Time of Visit: 7906-0330 Referral setting: Assisted living Referral Reason: F/u fever/Dementia - Information Sources Records reviewed: Previous records reviewed History/Review of Systems obtained from: Patient, Caregiver (caregivers at [facility]), Nursing Exam limitations: Clinical condition (Poor historian due to dementia) - History of Present Illness Update Brief HPI Update: This is a 79-year-old female with advanced dementia who is seen in follow-up today for evaluation due to being febrile yesterday, 01/29/2020. Was notified by nursing staff at [facility] that the patient had a temperature of 101.2 Fahrenheit. The patient and the rest of the patient's sons at the facility are on route chain temperature checks due to the coronavirus pandemic. Staff reported that the patient was without a cough, shortness of breath and no other residents have been febrile. They provided a cool compress as well as Tylenol due to the patient reporting generalized body pain which was effective. She continues to consume most of her meals. Her temperature decreased to 98.9 after the above-mentioned interventions. Requested that the staff obtain a clean-catch urine and send that for a UA with Ms. Reyes with culture if indicated and if unable to obtain a clean-catch urine a straight cath. A straight cath was obtained to day by the staff with the urine dipstick positive for leukocytes and nitrites. The patient continues to report generalized body aches. She denies dysuria as does the staff. The patient also report suprapubic pain. No history of constipation presently. No recent urinary tract infection. When speaking to the caregivers they report that the patient is requiring additional assistance with her overall caregiving needs in the last several days. She is requiring help with feeding which is typically not the case for her. She is consuming most of her meals. She is also requiring assistance with mobility and is presently utilizing a sit to stand for transfers. The patient has a history of diabetes mellitus and is on blood glucose checks twice daily. Her morning blood glucose levels have ranged from 1 10-1 64 and in the evening 129 11/26/2006. Patient has a past medical history of hypertension, hyperlipidemia, dementia, peripheral neuropathy, type 2 diabetes mellitus, hypothyroidism, incontinence, chronic kidney disease, overactive bladder, depression, insomnia, fibromyalgia, spinal stenosis, and history of ITP. Social History - Living Situation Living arrangement: Assisted living Support System: The [facility] at [facility]. She grew up in the [facility]. She has no children and is . Her nrjfedl-at-tci is her D POA, Catalino More ([phone],. See social history from visit 01/22/2024 additional details. Medications/Allergies - Medications Home Medications: Ambulatory Orders Medication Instructions Recorded Confirmed Atorvastatin Calcium 40 mg PO DAILY 04/25/18 01/22/20 Citalopram [CeleXA] 20 mg PO DAILY 04/25/18 01/22/20 L. Acidophilus/Pectin, Mclean 2 cap PO DAILY 04/25/18 01/22/20 [Acidophilus-Pectin Captab] Trospium Chloride 20 mg PO BID 04/25/18 01/22/20 lisinopriL [Lisinopril] 1 tab PO DAILY 04/25/18 01/22/20 Acetaminophen [Tylenol] 650 mg PO Q6H PRN 01/22/20 01/22/20 Albuterol Sulfate [Albuterol 1 puffs IN Q4H PRN 01/22/20 01/22/20 Sulfate Hfa] Bisacodyl Supp [Dulcolax Supp] 10 mg [place] DAILY PRN 01/22/20 01/22/20 Furosemide 20 mg PO DAILY 01/22/20 01/22/20 Guaifenesin/Dextromethorphan 10 ml PO Q6H PRN 01/22/20 01/22/20 [Guaifenesin-Dm 100-10 mg/5 ml] Ibuprofen 200 mg PO TID PRN 01/22/20 01/22/20 Insulin Glargine [Lantus Solostar] 32 units SQ QPM 01/22/20 01/22/20 Insulin Glargine [Lantus Solostar] 35 units SQ QDAC 01/22/20 01/22/20 Loperamide HCl [Loperamide] PRN 01/22/20 Mag Hydrox/Aluminum Hyd/Simeth 30 ml PO Q4H PRN 01/22/20 01/22/20 [Antacid Anti-Gas Liquid] Magnesium Citrate 150 ml PO DAILY PRN 01/22/20 01/22/20 Magnesium Hydroxide [Milk of 30 ml PO DAILY PRN MDD No BM after 01/22/20 01/22/20 Magnesia] 3 days Pramipexole Di-HCl [Mirapex] 0.125 mg PO QPM 01/22/20 01/22/20 Thyroid,Pork [[place] Thyroid] 90 mg PO DAILY 01/22/20 01/22/20 Trazodone HCl 25 mg PO QPM 01/22/20 01/22/20 Nitrofurantoin [Macrobid] 100 mg PO BID MDD x5days for UTI 01/30/20 01/30/20 - Allergies Allergies/Adverse Reactions: Allergies Allergy/AdvReac Type Severity Reaction Status Date / Time clindamycin Allergy Unknown Verified 01/22/20 15:56 desipramine Allergy Unknown Verified 01/22/20 15:56 nortriptyline Allergy Unknown Verified 01/22/20 15:56 oxybutynin Allergy Unknown Verified 01/22/20 15:56 Sulfa (Sulfonamide Allergy Unknown Verified 01/22/20 15:56 Antibiotics) Review of Systems - Constitutional Constitutional: reports: Fever (tempearture 101.2F on 01/29/2020), Weakness, Weight loss (weight 208.6lb on 01/24/2020; previous weight 209.2lb on 12/27/2019; 216lb 07/26/2019). denies: Chills - Ears, Nose & Throat Ears, Nose & Throat: denies: Nasal congestion - Cardiovascular Cardiovascular: denies: Palpitations, Chest pain - Respiratory Respiratory: denies: Cough, SOB at rest - Gastrointestinal Gastrointestinal: reports: Good appetite. denies: Abdominal distention, Constipation, Diarrhea, Vomiting - Genitourinary Genitourinary: reports: Incontinence, Other (+suprapubic pain). denies: Dysuria - Musculoskeletal Musculoskeletal: reports: Muscle weakness, Assistive devices, Other (generalized body pain) - Integumentary Integumentary: denies: Rash - Neurological Neurological: reports: General weakness, Memory problems - Psychiatric Psychiatric: reports: Depression - Endocrine Endocrine: reports: Diabetes type 2, Hypothyroidism - Hematologic/Lymphatic Hematologic/Lymphatic: denies: Recurrent infections - All Other Systems All Other Systems: reports: Reviewed and negative (ROS limited as patient is a poor historian due to dementia. ROS obtained from caregiver and nursing staff at [facility].) Physical Exam - Vital Signs Temperature: 36.7 C Pulse Rate: 74 O2 Saturation: 96 (on RA at rest) Blood Pressure: 122/59 (left wrist cuff) - Physical Exam General Appearance: positive: No acute distress, Alert, Other (sitting up in bed) Eyes Bilateral: positive: Normal inspection ENT: positive: No signs of dehydration Neck: positive: Trachea midline Cardiovascular: positive: Regular rate & rhythm, No murmur Respiratory: positive: No respiratory distress, Breath sounds nml, Other (No noted cough on assessment). negative: Wheezes Abdomen: positive: Soft, Nml bowel sounds, Obese, Other (+suprapubic tenderness to palpation with bladder nondistended) Skin: positive: Dryness Extremities: positive: Full ROM, No pedal edema Neurologic/Psychiatric: positive: Disoriented to place, Disoriented to time, Other (episodes of world salad when asking questions during examination.) Palliative Care - POLST Patient has POLST: Yes POLST Status: DNR, Comfort Measures Pain: Comment (generalized body pain) Anorexia: None Sleep: Sleep improved, Other (history of insomnia) Constipation: Managed Performance Status: In the last few days the patient has had a functional decline where she has required sit to stand for transfers when typically she ambulates independently without assistive devices. She also is requiring assistance with feeding by the caregiving staff. She is incontinent of urine. No recent falls. - Palliative Care Discussion: The patient has had a recent change in functional status with a decline requiring increased assistance from the caregivers and nursing staff at her assisted living facility[facility]. Yesterday the patient was noticed to be febrile with a T-max of 101.2 Fahrenheit. She is afebrile today but continues to work port complaints of generalized body pain and suprapubic pain. The patient was straight cathed today for obtaining a urine specimen which was positive for leukocytes and nitrates. Upon review with patient's wmkrebf-kk-xws/D POA due to the patient's urinary findings and discomfort will initiate Macrobid as an antibiotic for treatment of urinary tract infection for 5 days. The patient's isstdhm-dy-hxg wishes to focus on making the patient comfortable. Results - Lab Results Lab results reviewed: Yes Lab and Imaging Results: UA dipstick: ++leukocytes +nitrites All others negative Impression and Recommendations - Palliative Care Impression: This is a 79-year-old female with a history of dementia who was febrile y esterday with generalized body pain and suprapubic pressure with urinary dipstick positive for urinary tract infection with leukocytes and nitrates. Given these clinical findings will initiate antibiotic therapy for 5 days with urine culture pending. Palliative care to continue provide symptom management and anticipatory guidance. Recommendations/Counseling Done: 1. UTI. Patient febrile with T-max 101.2 Fahrenheit yesterday, afebrile today with continued generalized body pain as well as suprapubic pain upon examination with positive leukocytes and nitrites on UA dipstick, indicative of urinary tract infection. No noted increase in patient's blood glucose levels secondary to infection.Initiate Macrobid 100 mg twice daily x5 days. Urine culture and sensitivity with urinalysis and microscopy pending. Will follow with urine culture results and change antibiotic as indicated. Reviewed medication, purpose, dose and side effects with tfxlscv-zf-Tms/D FLORA Bae with understanding verbalized agreement. 2. Bilateral lower extremity edema. Euvolemic today without on lower extremity edema. Presently on weekly weights. We will continue to monitor. Continue fur osemide 20 mg daily as ordered. Adjust diuretic therapy as needed for symptom management. 3. Advance care planning. POLST and facility remains DN AR with comfort measures. Discussed with the patient's ndrnlmd-lh-qil/D BRYNNA Catalino, were regarding polypharmacy and medication burden and will slowly reduce pill burden and D POA in agreement. DC vitamin D supplementation after review with DPOA and in agreement. Time Spent: CPT 75382 Reviewed plan of care with nursing staff at [facility], patient's D POA/kzwualj-bt-zok Catalino. Reviewed with thscjnj-nm-igb signs and symptoms of urinary tract infection as well as antibiotic therapy with explanation of treatment course and side effects of antibiotic therapy with fnpmejs-ry-vxr with understanding verbalized. Total time spent X with greater than 50% of time spent in counseling family and patient regarding escalation vs de-escalation of care, palliative/hospice philosophy as well as care coordination, review of pain and symptom management and anticipatory guidance. Disclaimer: The chart note was formulated using voice recognition technology and unfortunately sound alike errors may occur.
== END 2020-01-30 12:31 | disposition home or self-care (01) ==
LOC: PC 12:30
PROVIDERS: ATTEND Nurse Practitioner Family
DX: Z51.5 Encounter for palliative care (principal); N39.0 Urinary tract infection, site not specified; R50.9 Fever, unspecified; R52 Pain, unspecified; R53.1 Weakness; E11.9 Type 2 diabetes mellitus without complications; R60.0 Localized edema; Z79.899 Other long term (current) drug therapy; Z79.4 Long term (current) use of insulin; Z66 Do not resuscitate

== ENCOUNTER 2020-02-09 09:00 | Outpatient (CLI) | payer MEDICARE ==
--- NOTE | 2020-02-09 20:05 | CONSULTATION NOTE ---
Palliative Care Follow Up - Referral Referring Provider: Dr. Cristian Allen Time of Visit: [id number] Referral setting: Assisted living Referral Reason: f/u UTI/Dementia - Information Sources Records reviewed: Previous records reviewed History/Review of Systems obtained from: Caregiver, Nursing Exam limitations: Clinical condition (poor historian due to dementia) - History of Present Illness Update Brief HPI Update: This is a 79-year-old female with advanced dementia who is seen in follow-up today for urinary tract infection. Patient was febrile on 01/2804/13/2020 with a T-max of 101.2 Fahrenheit. The patient was without respiratory symptoms, cough or shortness of breath. A straight cath was performed to obtain a urine specimen which was sent for urinalysis and culture that demonstrates treated growth of E. coli greater than 100,000 CFU per mL which was sensitive to Macrobid. She has completed a 5-day course of Macrobid with some improvement of her clinical status but she is not at baseline. At the onset of her symptoms she was requiring increased assistance by staff for feeding and she was no longer ambulatory dante given reports of generalized body pain. The patient has remained afebrile. She is now getting up out of bed but is still not walking. The staff are using a sit to stand and the patient is using a wheelchair to be out in the common area. She is continuing to not feed herself and is requiring to be fed by staff. She is typically consuming the majority of her meals again, with assistance. Caregiving staff report that when she is standing to transfer to the wheelchair she is making facial grimacing indicating pain to her bilateral knees. Staff also report noticing an increase of a rash to her abdominal folds. It has not spread. There is no evidence of pruritus as the patient is not itching that area. Past medical history includes hypertension, hyperlipidemia, dementia, peripheral neuropathy, type 2 diabetes, hypothyroidism, incontinence, chronic kidney disease, overactive bladder, depression, insomnia, fibromyalgia, spinal stenosis, and history of ITP. Social History - Living Situation Living arrangement: Assisted living Support System: The patient resides at [facility]. She grew up in [facility]. She is and has no children. Her ewipgty-on-lhb is her D POA, Catalino More ([phone] (. Medications/Allergies - Medications Home Medications: Ambulatory Orders Medication Instructions Recorded Confirmed Citalopram [CeleXA] 20 mg PO DAILY 04/25/18 02/10/20 Trospium Chloride 20 mg PO BID 04/25/18 02/10/20 lisinopriL [Lisinopril] 1 tab PO DAILY 04/25/18 02/10/20 Acetaminophen [Tylenol] 650 mg PO Q6H PRN 01/22/20 02/10/20 Albuterol Sulfate [Albuterol 1 puffs IN Q4H PRN 01/22/20 02/10/20 Sulfate Hfa] Bisacodyl Supp [Dulcolax Supp] 10 mg [place] DAILY PRN 01/22/20 02/10/20 Furosemide 20 mg PO DAILY 01/22/20 02/10/20 Guaifenesin/Dextromethorphan 10 ml PO Q6H PRN 01/22/20 02/10/20 [Guaifenesin-Dm 100-10 mg/5 ml] Ibuprofen 200 mg PO TID PRN 01/22/20 02/10/20 Insulin Glargine [Lantus Solostar] 32 units SQ QPM 01/22/20 01/22/20 Insulin Glargine [Lantus Solostar] 35 units SQ QDAC 01/22/20 01/22/20 Loperamide HCl [Loperamide] PRN 01/22/20 Mag Hydrox/Aluminum Hyd/Simeth 30 ml PO Q4H PRN 01/22/20 01/22/20 [Antacid Anti-Gas Liquid] Magnesium Citrate 150 ml PO DAILY PRN 01/22/20 01/22/20 Magnesium Hydroxide [Milk of 30 ml PO DAILY PRN MDD No BM after 01/22/20 01/22/20 Magnesia] 3 days Pramipexole Di-HCl [Mirapex] 0.125 mg PO QPM 01/22/20 02/10/20 Thyroid,Pork [[place] Thyroid] 90 mg PO DAILY 01/22/20 02/10/20 Trazodone HCl 25 mg PO QPM 01/22/20 02/10/20 Acetaminophen 650 mg PO BID 02/10/20 02/10/20 Nystatin 1 applic TP BID MDD x7 days 02/10/20 02/10/20 Senna [Senokot] 8.6 mg PO DAILY MDD hold for loose 02/10/20 02/10/20 stools - Allergies Allergies/Adverse Reactions: Allergies Allergy/AdvReac Type Severity Reaction Status Date / Time clindamycin Allergy Unknown Verified 01/22/20 15:56 desipramine Allergy Unknown Verified 01/22/20 15:56 nortriptyline Allergy Unknown Verified 01/22/20 15:56 oxybutynin Allergy Unknown Verified 01/22/20 15:56 Sulfa (Sulfonamide Allergy Unknown Verified 01/22/20 15:56 Antibiotics) Review of Systems - Constitutional Constitutional: reports: Other (weight 208.6lb 01/24/2020). denies: Fever, Chills - Ears, Nose & Throat Ears, Nose & Throat: denies: Dry mouth - Cardiovascular Cardiovascular: denies: Palpitations, Chest pain - Respiratory Respiratory: denies: Cough, SOB at rest - Gastrointestinal Gastrointestinal: reports: Constipation, Good appetite. denies: Abdominal pain, Diarrhea, Vomiting - Genitourinary Genitourinary: reports: Incontinence. denies: Dysuria, Hematuria - Musculoskeletal Musculoskeletal: reports: Muscle weakness, Joint pain, Assistive devices - Integumentary Integumentary: reports: Rash - Neurological Neurological: reports: General weakness, Memory problems - Psychiatric Psychiatric: reports: Depression - Endocrine Endocrine: reports: Diabetes type 2, Hypothyroidism - Hematologic/Lymphatic Hematologic/Lymphatic: denies: Recurrent infections - All Other Systems All Other Systems: reports: Reviewed and negative Physical Exam - Vital Signs Temperature: 36.7 C Pulse Rate: 90 O2 Saturation: 97 (on RA at rest) Blood Pressure: 135/80 - Physical Exam General Appearance: positive: No acute distress, Alert, Other (OOB in wheelchair sitting at dining table finishing breakfast with assistance) Eyes Bilateral: positive: Normal inspection ENT: positive: No signs of dehydration Neck: positive: Trachea midline Cardiovascular: positive: Regular rate & rhythm, No murmur Respiratory: positive: No respiratory distress, Breath sounds nml Abdomen: positive: Non-tender, Soft, Nml bowel sounds, Obese, Other (bladder nondistended) Skin: positive: Other (venous stasis changes bilateral feet; erythematous under bilateral abdominal folds with left greater than right consistent with candidiasis) Extremities: positive: No pedal edema, Other (+trace creptius bilateral knees with no noted deformity on examination) Neurologic/Psychiatric: positive: Disoriented to place, Disoriented to time Palliative Care - POLST Patient has POLST: Yes POLST Status: DNR, Comfort Measures Pain: Comment (bilateral knee pain) Sleep: Sleeps well Constipation: Intermittent constipation Performance Status: Patient has had a change in function but has not returned to baseline after urinary tract infection. She is requiring a sit to stand for transfers to her wheelchair. At baseline she has been ambulating independently without assistive devices or would hold on 2 staff members. She continues to require assistance with feeding by the caregiving staff. She is incontinent of urine. No recent falls. - Palliative Care Discussion: The patient has had a acute change in her functional status and ability requir ing increased assistance from the caregiving and nursing staff at [facility]. Staff deny coughing during meals and she is requiring continued assistance with feeding. It is unclear if this will new be her new baseline secondary to her recent urinary tract infection or if she will have improvement. The patient is demonstrating signs of discomfort to her bilateral knees when she is standing to the caregivers.Discussed with the patient's eyfinlp-ku-aau/D POA due to her discomfort to her knees will initiate acetaminophen as a trial to see if this will improve her discomfort and encouraged her to reattempt ambulation if this was potentially a barrier. The patient's iwbvzir-np-bqs wishes to focus on making the patient comfortable and on quality of life issues. Impression and Recommendations - Palliative Care Impression: This is a 79-year-old female with a history of dementia status post a recent urinary tract infectionThat was treated with oral antibiotics with resolution of clinical symptoms. The patient continues to have a decline in her overall functional status where she is no longer ambulating independently and is requiring assistance with meals which is not her typical baseline. She is also experiencing some noted discomfort to her bilateral knees possibly due to arthritis. Palliative care to continue to provide symptom management and anticipatory guidance. Recommendations/Counseling Done: 1. Dementia. Chronic. Progressive. Supportive Care. Fall and Aspiration precautions. No behavioral concerns reported by staff. On no disease modifying agents. The patient has had a recent sharp functional decline and this is unclear if this is due to the recent urinary tract infection or a progression of her dementia. Given the patient's advanced age, dementia and chronic co- morbidities, a gradual decline is expected. 2. UTI. resolved s/p treatment with macrobid. Urine culture grew 100,000 cfu/mL of E. coli. Encourage oral hydration. 3. Osteoarthritis. Bilateral knee. Start tylenol 650mg BID for pain. Hopeful that initiating routine Tylenol will assist with pain management to encourage the patient to attempt ambulation and thus, will forward her wheelchair. Consider add addition of lidocaine patches to bilateral knees if a full response is not achieved. Continue to monitor. 4.HLD. Reviewed with mjrjexn-du-hrs/D POA given time to benefit in patient's life expectancy with no prior history of CVA or and I would recommend discontinuation of atorvastatin and D POA in agreement. DC atorvastatin. 5. Candidal intertrigo under abdominal folds. Due to excess moisture due to obseity. Start nystatin powder to affected areas BID x 7 days. 6. Advance care planning Princess SOLAR[place] with comfort measures. Reviewed medications with xyienoq-pf-xzu/D POA regarding benefits and burdens of present medications and polypharmacy. At the present time D POA is in agreement to di scontinue vitamin D and probiotic therapy. We will continue to review medication list on subsequent follow-ups to reduce burden. Time Spent: CPT 67756 POC reviewed with nursing staff and jeacbnv-do-pue/DPJENN Bae via phone in the presence of the patient with questions answered and addressed with agreement of POC. Disclaimer: The chart note was formulated using voice recognition technology and unfortunately sound alike errors may occur.
== END 2020-02-09 09:01 | disposition home or self-care (01) ==
LOC: PC 09:00
PROVIDERS: ATTEND Nurse Practitioner Family
DX: Z51.5 Encounter for palliative care (principal); F03.90 Unspecified dementia, unspecified severity, without behavioral disturbance, psychotic disturbance, mood disturbance, and anxiety; R53.1 Weakness; L30.4 Erythema intertrigo; M17.0 Bilateral primary osteoarthritis of knee; R32 Unspecified urinary incontinence; K59.00 Constipation, unspecified; E78.5 Hyperlipidemia, unspecified; E11.9 Type 2 diabetes mellitus without complications; E03.9 Hypothyroidism, unspecified; Z79.899 Other long term (current) drug therapy; Z79.4 Long term (current) use of insulin; Z87.440 Personal history of urinary (tract) infections; Z66 Do not resuscitate

== ENCOUNTER 2020-03-13 12:00 | Outpatient (CLI) | payer MEDICARE ==
--- NOTE | 2020-03-13 16:47 | CONSULTATION NOTE ---
Palliative Care Follow Up - Referral Referring Provider: Dr. Cristian Allen Time of Visit: [id number] Referral setting: Assisted living Referral Reason: Dementia/Weight loss/Diabetes Mellitus - Information Sources Records reviewed: Previous records reviewed History/Review of Systems obtained from: Patient, Family (DPJENN/[id number] Catalino), Caregiver, Nursing Exam limitations: Clinical condition (Poor historian due to dementia) - History of Present Illness Update Brief HPI Update: This is a 79-year-old female who is seen and evaluated today for follow-up due to advanced dementia, weight loss, and diabetes mellitus. The patient has a longstanding history of dementia and it is unclear when this was originally diagnosed. The patient previously resided at [facility] where she did very well until her caregiving needs increased. She transition to home place for additional caregiving needs in April 2018. The patient was treated for a urinary tract infection with a urine culture that grew E. coli greater than 100,000 CFU per mL in January 28/2020. At the onset of her urinary tract symptoms she was requiring increased assistance by staff for feeding and transition to no longer being ambulatory. Since resolution of her urinary tract infection she is able to self feed but is no longer ambulatory. No recent falls. Staff deny any recent reports of pain. In the past when she was standing to transfer to the wheelchair she had made facial grimacing and was initiated on acetaminophen 650 mg twice daily for pain management on last evaluation. The patient has a history of type 2 diabetes mellitus and is presently managed on Lantus 35 units in the morning and 32 units in the evening. her last hemoglobin A1c on 12/07/2019 was 6.2%. Upon review of her blood glucose log she has only had 2 readings below 100 in the mornings. Low of 90 noted on 02/27/2020 and of 97 in the AM of 03/05/2020. Her highest blood glucose reading was 189 noted on 02/28. No signs or symptoms of hyper or hypoglycemia. The patient had some recent noted weight loss after her urinary tract infection. She has subsequently regained some weight and is presently at 200 pounds. She previously weighed 216 pounds in July 2019. She is now able to self feed but is slow in her consumption. She has a history of depression and is presently on citalopram. Staff report that the patient has been in better spirits recently and has had a sweet demeanor. Patient had a rash under her abdominal folds that improved with the use of nystatin powder routinely. Past medical history includes hypertension, hyperlipidemia, dementia, peripheral neuropathy, type 2 diabetes, hypothyroidism, incontinence, chronic kidney dise ase, overactive bladder, depression, insomnia, fibromyalgia, spinal stenosis, history of ITP. Social History - Living Situation Living arrangement: Assisted living Support System: The patient resides at home [facility]. She grew up in [place]. She is and has no children. Her [id number] is her D Catalino HINES ([phone] (. Medications/Allergies - Medications Home Medications: Ambulatory Orders Medication Instructions Recorded Confirmed Citalopram [CeleXA] 20 mg PO DAILY 04/25/18 02/10/20 Trospium Chloride 20 mg PO BID 04/25/18 02/10/20 lisinopriL [Lisinopril] 1 tab PO DAILY 04/25/18 02/10/20 Acetaminophen [Tylenol] 650 mg PO Q6H PRN 01/22/20 02/10/20 Albuterol Sulfate [Albuterol 1 puffs IN Q4H PRN 01/22/20 02/10/20 Sulfate Hfa] Bisacodyl Supp [Dulcolax Supp] 10 mg IA DAILY PRN 01/22/20 02/10/20 Furosemide 20 mg PO DAILY 01/22/20 02/10/20 Guaifenesin/Dextromethorphan 10 ml PO Q6H PRN 01/22/20 02/10/20 [Guaifenesin-Dm 100-10 mg/5 ml] Ibuprofen 200 mg PO TID PRN 01/22/20 02/10/20 Insulin Glargine [Lantus Solostar] 32 units SQ QPM 01/22/20 01/22/20 Insulin Glargine [Lantus Solostar] 35 units SQ QDAC 01/22/20 01/22/20 Loperamide HCl [Loperamide] PRN 01/22/20 Mag Hydrox/Aluminum Hyd/Simeth 30 ml PO Q4H PRN 01/22/20 01/22/20 [Antacid Anti-Gas Liquid] Magnesium Citrate 150 ml PO DAILY PRN 01/22/20 01/22/20 Magnesium Hydroxide [Milk of 30 ml PO DAILY PRN MDD No BM after 01/22/20 01/22/20 Magnesia] 3 days Pramipexole Di-HCl [Mirapex] 0.125 mg PO QPM 01/22/20 02/10/20 Thyroid,Pork [[place] Thyroid] 90 mg PO DAILY 01/22/20 02/10/20 Trazodone HCl 25 mg PO QPM 01/22/20 02/10/20 Acetaminophen 650 mg PO TID 02/10/20 02/10/20 Nystatin 1 applic TP BID MDD x7 days 02/10/20 02/10/20 Senna [Senokot] 8.6 mg PO DAILY MDD hold for loose 02/10/20 02/10/20 stools - Allergies Allergies/Adverse Reactions: Allergies Allergy/AdvReac Type Severity Reaction Status Date / Time clindamycin Allergy Unknown Verified 01/22/20 15:56 desipramine Allergy Unknown Verified 01/22/20 15:56 nortriptyline Allergy Unknown Verified 01/22/20 15:56 oxybutynin Allergy Unknown Verified 01/22/20 15:56 Sulfa (Sulfonamide Allergy Unknown Verified 01/22/20 15:56 Antibiotics) Review of Systems - Constitutional Constitutional: reports: Weight loss (weight 200lb 03/12/2020; weight 209.2lb ). denies: Fever - Eyes Eyes: denies: Corrective lenses - Ears, Nose & Throat Ears, Nose & Throat: denies: Hearing loss - Cardiovascular Cardiovascular: denies: Chest pain - Respiratory Respiratory: denies: Cough, Wheezing - Gastrointestinal Gastrointestinal: reports: Good appetite. denies: Abdominal pain, Constipation, Diarrhea, Vomiting - Genitourinary Genitourinary: reports: Incontinence. denies: Dysuria, Hematuria - Musculoskeletal Musculoskeletal: reports: Muscle weakness, Joint pain, Assistive devices - Integumentary Integumentary: denies: Rash - Neurological Neurological: reports: General weakness, Memory problems - Psychiatric Psychiatric: reports: Depression - Endocrine Endocrine: reports: Diabetes type 2, Hypothyroidism - All Other Systems All Other Systems: reports: Reviewed and negative (ROS limited as patient is a poor historian due to dementia.) Physical Exam - Vital Signs Temperature: 36.4 C Pulse Rate: 65 O2 Saturation: 96 (on RA) Blood Pressure: 139/81 (left wrist cuff) - Physical Exam General Appearance: positive: No acute distress, Alert, Other (OOB in whelchair sitting at table waiting on lunch) Eyes Bilateral: positive: Normal inspection ENT: positive: No signs of dehydration Neck: positive: Trachea midline Cardiovascular: positive: Regular rate & rhythm Respiratory: positive: No respiratory distress, Diminished in bases (slightly diminished in bases). negative: Rales Abdomen: positive: Non-tender, Soft, Nml bowel sounds, Obese. negative: Guarding Skin: positive: Other (venous stasis changes to bilateral feet) Extremities: positive: No pedal edema, Other (+crepitus to bilateral knees without warmth to palpation or noted erythema. Bilateral knees nontender to palpation.) Neurologic/Psychiatric: positive: Mood/affect nml, Disoriented to place, Disoriented to time Palliative Care - POLST Patient has POLST: Yes POLST Status: DNR, Comfort Measures Pain: Pain unchanged (bilateral knee pain on ambulation, potentially, that is not noted at rest that has improved per recent reports with transfers) Sleep: Sleeps well Constipation: No, Managed Performance Status: Patient requires a sit to stand for transfers to her wheelchair. Previously she was ambulating independently with a walker. Since her urinary tract infection in January 2020 she remains in her wheelchair electing not to ambulate. She no longer requires assistance with feeding by caregiving staff. However, she is slow to complete her meals independently. She is incontinent of urine. No recent falls. F AST 7C - Palliative Care Discussion: The patient after her urinary tract infection in January 2020 has not returned to her baseline functional status and is no longer ambulatory. Staff previously had reported several evidence of pain to her knees due to osteoarthritis and routine acetaminophen 650 mg twice daily was initiated in hopes that the patient would have improvement of her ambulation however, she has not been inclined to proceed with ambulation. She is also had some noted weight loss over the last few months and has regained some weight that she had previously lost and is presently stable at 200 pounds. She has had an improvement of her overall appetite as well as her demeanor. She has a history of depression and staff reports an improvement of her overall mood. She is managed on citalopram. Discussed with the patient's fjaciqq-pa-ibl/D POA that potentially the underlying inability for the patient to ambulate may not necessarily be underlying pain but would be due to the advancement of her dementia. After discussion we will try and increase of acetaminophen midday to see if there is any noted improvement. At the present time family wishes to focus on quality of life and comfort. Impression and Recommendations - Palliative Care Impression: This is a 79-year-old female with a history of dementia who is at the present time no longer ambulatory after a urinary tract infection and is a fast 7C. She has had noted weight loss with some subsequent gain in recent weeks and weight has stabilized. The patient herself denies any discomfort. Palliative care to continue to wrap support for symptom management and anticipatory guidance. Recommendations/Counseling Done: 1. Osteoarthritis. Bilateral knees. Increase acetaminophen to 650 mg 3 times daily for pain. Not to exceed 3000 mg of acetaminophen daily from all sources. Unclear if patient's reluctance to ambulate is due to underlying osteoarthritis versus progression of her dementia. We will try the increase of acetaminophen to see if there is improvement. Fall precautions. Continue to monitor. 2. Weight loss. This was noted more acutely during her recovery from her urinary tract infection and her weight has recently stabilized at 200 pounds. Continue weekly weights. Continue to monitor. 3. Dementia. Chronic. Progressive. Supportive care. Fall and aspiration precautions. No behavioral concerns reported by staff at the present time. Continue citalopram and trazodone as ordered. On no disease modifying agents. The patient remains nonambulatory at this time likely due to progression of her dementia which was reviewed at length with her annhqhc-eh-vqk/D Catalino HINES. Presently a fast 7C. Given the patient's advanced age, dementia and chronic comorbidities, a gradual decline as expected. 4. Diabetes mellitus, type II. Controlled. Improvement of noted blood glucose readings with previous dose reduction of Lantus. Continue Lantus 35 units every morning and 32 units every evening and hold if blood glucose levels less than 100. Last hemoglobin A1c 6.2% on 12/11/2019. Given the patient's advanced age and risk for falls would wish to reduce hypoglycemic risk. Goal hemoglobin A1c 7 to 8% given the patient's advanced age. 5. Insomnia. Improved. Continue trazodone 25 mg nightly. 6. Advance care planning. POLST in place as DN AR with comfort measures. This was obtained by verbal consent and December 2019 but signed copy has not been received by this POST OFFICE CLERK or facility. Will mail out another copy for Leigh HINES to sign and return with understanding verbalized due to coronavirus pandemic. Patient's D POA wishes to focus on comfort measures. Palliative care to continue to build rapport and explore goals of care. Time Spent: CPT 95404 Plan of care reviewed with qnoazce-es-hza/Leigh Bae via phone with questions answered and addressed with agreement of plan of care moving forward. Disclaimer: The chart note was formulated using voice recognition technology and unfortunately sound alike errors may occur.
== END 2020-03-13 12:01 | disposition home or self-care (01) ==
LOC: PC 12:00
PROVIDERS: ATTEND Nurse Practitioner Family
DX: Z51.5 Encounter for palliative care (principal); F03.90 Unspecified dementia, unspecified severity, without behavioral disturbance, psychotic disturbance, mood disturbance, and anxiety; R63.4 Abnormal weight loss; E11.9 Type 2 diabetes mellitus without complications; G47.00 Insomnia, unspecified; M17.0 Bilateral primary osteoarthritis of knee; Z79.4 Long term (current) use of insulin; Z79.899 Other long term (current) drug therapy; Z87.440 Personal history of urinary (tract) infections; Z66 Do not resuscitate

== ENCOUNTER 2020-05-10 09:30 | Outpatient (CLI) | payer MEDICARE ==
--- NOTE | 2020-05-10 14:18 | CONSULTATION NOTE ---
Palliative Care Follow Up - Referral Referring Provider: Dr. Cristian Allen Time of Visit: 9801-0316 Referral setting: Assisted living Referral Reason: Dementia/Diabetes Mellitus - Information Sources Records reviewed: Previous records reviewed History/Review of Systems obtained from: Patient, Caregiver, Nursing Exam limitations: Clinical condition (Poor historian due to dementia) - History of Present Illness Update Brief HPI Update: This is a 79-year-old female who was seen and evaluated today at [facility] unit for follow-up due to advanced dementia, weight loss, and diabetes mellitus type 2. The patient has a longstanding history of dementia and it is unclear when this was originally diagnosed. The patient previously resided at [facility] where She did well there until her caregiving needs increased. She transition to home place for additional caregiving needs in April 2018. She does have periods of agitation with the staff but typically she can be redirected. She is presently on trazodone 25 mg nightly for insomnia and agitation. Also on citalopram for her history of depression. The patient has a history of type 2 diabetes mellitus and is presently on Lantus 35 units in the morning and 26 units in the evening. Her last hemoglobin A1c on 12/07/2019 was 6.2% she has required adjustments of her Lantus recently as her fasting blood glucose levels have been less than 100. Upon review her recent fasting blood glucose levels have been as follows 117, 112, 166, 87, 104, 127, 100, 86, 106, 92.No symptoms of hyper or hypoglycemia. The patient previously had some noted weight loss that has subsequently improved and has been trending upward. Her last weight was at 206 pounds. Her appetite has also improved. She previously lost weight after her urinary tract infection. Of note she weighed 216 in July 2019. She is able to self feed. The patient is seen at the dining table, well groomed without acute distress. Her walker is at her side and a gait belt is around her Abdomen. Patient has a past medical history that includes hypertension, hyperlipidemia, dementia, peripheral neuropathy, type 2 diabetes, hypothyroidism, incontinence, chronic kidney disease, overactive bladder, depression, insomnia, fibromyalgia, spinal stenosis, history of ITP. Social History - Living Situation Living arrangement: Assisted living Support System: The patient resides at [facility] care. She grew up in the [facility]. She is and has no children. Her kellnuj-of-gvy is her D BRYNNA, Catalino Skaggs's contact number [phone]. Medications/Allergies - Medications Home Medications: Ambulatory Orders Medication Instructions Recorded Confirmed Citalopram [CeleXA] 20 mg PO DAILY 04/25/18 02/10/20 Trospium Chloride 20 mg PO BID 04/25/18 02/10/20 lisinopriL [Lisinopril] 1 tab PO DAILY 04/25/18 02/10/20 Acetaminophen [Tylenol] 650 mg PO Q6H PRN 01/22/20 02/10/20 Albuterol Sulfate [Albuterol 1 puffs IN Q4H PRN 01/22/20 02/10/20 Sulfate Hfa] Bisacodyl Supp [Dulcolax Supp] 10 mg HI DAILY PRN 01/22/20 02/10/20 Furosemide 20 mg PO DAILY 01/22/20 02/10/20 Guaifenesin/Dextromethorphan 10 ml PO Q6H PRN 01/22/20 02/10/20 [Guaifenesin-Dm 100-10 mg/5 ml] Ibuprofen 200 mg PO TID PRN 01/22/20 02/10/20 Insulin Glargine [Lantus Solostar] 26 units SQ QPM 01/22/20 01/22/20 Insulin Glargine [Lantus Solostar] 35 units SQ QDAC 01/22/20 01/22/20 Loperamide HCl [Loperamide] PRN 01/22/20 Mag Hydrox/Aluminum Hyd/Simeth 30 ml PO Q4H PRN 01/22/20 01/22/20 [Antacid Anti-Gas Liquid] Magnesium Citrate 150 ml PO DAILY PRN 01/22/20 01/22/20 Magnesium Hydroxide [Milk of 30 ml PO DAILY PRN MDD No BM after 01/22/20 01/22/20 Magnesia] 3 days Pramipexole Di-HCl [Mirapex] 0.125 mg PO QPM 01/22/20 02/10/20 Thyroid,Pork [[place] Thyroid] 90 mg PO DAILY 01/22/20 02/10/20 Trazodone HCl 25 mg PO QPM 01/22/20 02/10/20 Acetaminophen 650 mg PO TID 02/10/20 02/10/20 Senna [Senokot] 8.6 mg PO DAILY MDD hold for loose 02/10/20 02/10/20 stools - Allergies Allergies/Adverse Reactions: Allergies Allergy/AdvReac Type Severity Reaction Status Date / Time clindamycin Allergy Unknown Verified 01/22/20 15:56 desipramine Allergy Unknown Verified 01/22/20 15:56 nortriptyline Allergy Unknown Verified 01/22/20 15:56 oxybutynin Allergy Unknown Verified 01/22/20 15:56 Sulfa (Sulfonamide Allergy Unknown Verified 01/22/20 15:56 Antibiotics) Review of Systems - Constitutional Constitutional: reports: Other (previous weight loss with recent increase of weight to 206lb). denies: Fever - Eyes Eyes: denies: Corrective lenses - Ears, Nose & Throat Ears, Nose & Throat: denies: Hearing loss - Cardiovascular Cardiovascular: denies: Chest pain, Lightheadedness - Respiratory Respiratory: denies: Cough - Gastrointestinal Gastrointestinal: reports: Good appetite. denies: Abdominal pain, Diarrhea - Genitourinary Genitourinary: reports: Incontinence. denies: Dysuria - Musculoskeletal Musculoskeletal: reports: Assistive devices. denies: Joint pain - Integumentary Integumentary: denies: Rash - Neurological Neurological: reports: General weakness, Memory problems - Psychiatric Psychiatric: reports: Depression - Endocrine Endocrine: reports: Diabetes type 2, Hypothyroidism - All Other Systems All Other Systems: reports: Reviewed and negative (ROS limited as patient is a poor historian due to dementia.) Physical Exam - Vital Signs Temperature: 36.7 C Pulse Rate: 71 O2 Saturation: 98 (on RA at rest) Blood Pressure: 140/70 (right wrist cuff sitting) - Physical Exam General Appearance: positive: No acute distress, Alert, Other (OOB sitting at dinning table, well groomed with gait belt around her waist) Eyes Bilateral: positive: Normal inspection ENT: negative: Hearing loss Neck: positive: Trachea midline Cardiovascular: positive: Regular rate & rhythm Respiratory: positive: No respiratory distress, Diminished in bases (slightly dimminished in bases) Abdomen: positive: Non-tender, Soft, Nml bowel sounds, Obese Skin: positive: Other (venous stasis changes b/l feet) Extremities: positive: No pedal edema, Other (+crepitus b/l knees without tenderness or warmth to palpation) Neurologic/Psychiatric: positive: Disoriented to place, Disoriented to time, Flat affect Palliative Care - POLST Patient has POLST: Yes POLST Status: DNR, Comfort Measures Pain: No pain (History of pain to b/l knees controlled at this time) Sleep: Sleeps well Constipation: No - Palliative Care Discussion: Patient had a weight loss after her last urinary tract infection in January 2020 which she has steadily been improving on her weight. She presently weighs 206 pounds. Her overall appetite has improved. Intermittently she has a history of agitation with the staff but presently this is well managed with trazodone and citalopram also for her underlying depression.The patient has required dose adjustments to her Lantus dosage due to her fasting blood glucose levels being less than 100 in the morning. There has been no evidence of symptoms related to hypo-or hyperglycemia. The patient has a history of arthritis to her bilateral knees and this seems to be controlled with routine acetaminophen schedule III times daily. Results - Lab Results Lab results reviewed: Yes Lab and Imaging Results: 04/13/2020 WBC 6.6, hemoglobin 13.5, hematocrit 39.2, MCV 91, RDW 13.5, platelets 166 12/11/2019 sodium 144, potassium 3.7, BUN 22, creatinine 1.07, GFR 50 AST 16, ALT 20, hemoglobin A1c 6.2% Impression and Recommendations - Palliative Care Impression: This is a 79-year-old female with a history of dementia with recent weight loss that has subsequently stabilized. She has history of diabetes mellitus that has required recent Lantus dose adjustments as well as underlying depression. The patient herself reports that she is comfortable. Palliative care to continue to provide support for symptom management and anticipatory guidance. Recommendations/Counseling Done: 1. Diabetes mellitus type 2. Recent noted lows upon fasting blood glucose levels. Lantus dose adjusted to 35 units every morning and 26 units every evening and hold if blood glucose levels are less than 100. Last hemoglobin A1c 6.2% on 12/07/2019. Obtain hemoglobin A1c on 06/06/2020 and follow with result. Given the patient's advanced age and risk for falls would wish to avoid hypo glycemia. Goal hemoglobin A1c is 7 to 8% given the patient's advanced age. 2. Osteoarthritis. Bilateral knees. Continue acetaminophen 650 mg 3 times daily for pain not to exceed 3000 mg of acetaminophen daily from all sources. No reports of discomfort on examination. Fall precautions. Continue to monitor. 3. Weight loss. Related to recent urinary tract infection in January 2020 with noted weight gain likely due to sedentary nature and improvement of appetite. Presently weight 206 pounds. Continue to monitor. 4. Insomnia. Stable. Continue trazodone 25 mg nightly. 5. Dementia. Chronic. Progressive. Supportive care. Fall precautions. No behavioral concerns reported by staff. Continue citalopram and trazodone as ordered. On no disease modifying agents. Given the patient's advanced age, dementia and chronic comorbidities a gradual decline as expected. Time Spent: CPT 03277 Plan of care reviewed with nursing and facility staff with questions answered and addressed.Plan of care reviewed with vjhjswo-no-jfj/Catalino PARRY with questions answered and addressed and verbalized understanding. Disclaimer: The chart note was formulated using voice recognition technology and unfortunately sound alike errors may occur.
== END 2020-05-10 09:31 | disposition home or self-care (01) ==
LOC: PC 09:30
PROVIDERS: ATTEND Nurse Practitioner Family
DX: Z51.5 Encounter for palliative care (principal); F03.90 Unspecified dementia, unspecified severity, without behavioral disturbance, psychotic disturbance, mood disturbance, and anxiety; I12.9 Hypertensive chronic kidney disease with stage 1 through stage 4 chronic kidney disease, or unspecified chronic kidney disease; E11.22 Type 2 diabetes mellitus with diabetic chronic kidney disease; N18.9 Chronic kidney disease, unspecified; E11.42 Type 2 diabetes mellitus with diabetic polyneuropathy; R63.4 Abnormal weight loss; F32.9 Major depressive disorder, single episode, unspecified; M17.0 Bilateral primary osteoarthritis of knee; Z74.09 Other reduced mobility; G47.00 Insomnia, unspecified; H54.7 Unspecified visual loss; Z66 Do not resuscitate; Z91.81 History of falling; Z79.4 Long term (current) use of insulin; Z79.899 Other long term (current) drug therapy; Z87.440 Personal history of urinary (tract) infections

== ENCOUNTER 2020-09-17 09:10 | Outpatient (CLI) | payer MEDICARE ==
--- NOTE | 2020-09-17 11:54 | CONSULTATION NOTE ---
Palliative Care Follow Up - Referral Referring Provider: Dr. Cristian Allen Time of Visit: Initated 909 Referral setting: Assisted living Referral Reason: Dementia/DM - Information Sources Records reviewed: Previous records reviewed History/Review of Systems obtained from: Patient, Caregiver, Nursing Exam limitations: Clinical condition (Advanced Dementia) - History of Present Illness Update Brief HPI Update: This is a 79-year-old female who was [facility] and [facility] for follow-up due to advanced dementia and diabetes mellitus type 2. Patient has a history of type 2 diabetes mellitus and is presently on Lantus 35 units in the morning and 20 units in the evening. Her last hemoglobin A1c obtained 09/07/2020 was 6.4%. She has required a down titration of her Lantus dosing Which was last changed on 09/04/2020. The patient has not experienced any episodes of hyper or hypoglycemia. She continues to have a subtle weight loss trends with last weight 205 pounds. She continues to have a good appetite. She previously weighed 216 pounds in July 2020. She continues to be able to self feed. The patient per the caregivers has not had any periods of agitation or behavioral concerns. She is engaged in activities that are held at the facility. No recent falls. The patient is seen at the dining room table, well groomed without acute distress. She is sitting in her wheelchair. There is a gait belt around her at [facility]. Past Medical History: Patient has a past medical history that includes hypertension, hyperlipidemia, dementia, peripheral neuropathy, type 2 diabetes, hypothyroidism, incontinence, chronic kidney disease, overactive bladder, depression, insomnia, fibromyalgia, spinal stenosis, history of ITP. Social History - Living Situation Living arrangement: Assisted living Support System: [facility] 2018. She previously resided at [facility] on the [place]. She grew up in the [facility]. She is and has no children. Her arskkwu-kd-rss, Catalino, is her DPOA with contact number [phone]. Medications/Allergies - Medications Home Medications: Ambulatory Orders Medication Instructions Recorded Confirmed Citalopram [CeleXA] 20 mg PO DAILY 04/25/18 09/17/20 Trospium Chloride 20 mg PO BID 04/25/18 09/17/20 lisinopriL [Lisinopril] 1 tab PO DAILY 04/25/18 09/17/20 Acetaminophen [Tylenol] 650 mg PO Q6H PRN 01/22/20 09/17/20 Albuterol Sulfate [Albuterol 1 puffs IN Q4H PRN 01/22/20 09/17/20 Sulfate Hfa] Bisacodyl Supp [Dulcolax Supp] 10 mg NM DAILY PRN 01/22/20 09/17/20 Furosemide 20 mg PO DAILY 01/22/20 09/17/20 Guaifenesin/Dextromethorphan 10 ml PO Q6H PRN 01/22/20 09/17/20 [Guaifenesin-Dm 100-10 mg/5 ml] Insulin Glargine [Lantus Solostar] 20 units SQ QPM 01/22/20 09/17/20 Insulin Glargine [Lantus Solostar] 35 units SQ QDAC 01/22/20 09/17/20 Loperamide HCl [Loperamide] PRN 01/22/20 Mag Hydrox/Aluminum Hyd/Simeth 30 ml PO Q4H PRN 01/22/20 09/17/20 [Antacid Anti-Gas Liquid] Magnesium Citrate 150 ml PO DAILY PRN 01/22/20 09/17/20 Magnesium Hydroxide [Milk of 30 ml PO DAILY PRN MDD No BM after 01/22/20 09/17/20 Magnesia] 3 days Pramipexole Di-HCl [Mirapex] 0.125 mg PO QPM 01/22/20 09/17/20 Thyroid,Pork [[place] Thyroid] 90 mg PO DAILY 01/22/20 09/17/20 Trazodone HCl 25 mg PO QPM 01/22/20 09/17/20 Acetaminophen 650 mg PO TID 02/10/20 09/17/20 Senna [Senokot] 8.6 mg PO DAILY MDD hold for loose 02/10/20 09/17/20 stools - Allergies Allergies/Adverse Reactions: Allergies Allergy/AdvReac Type Severity Reaction Status Date / Time clindamycin Allergy Unknown Verified 09/17/20 12:03 desipramine Allergy Unknown Verified 09/17/20 12:03 nortriptyline Allergy Unknown Verified 09/17/20 12:03 oxybutynin Allergy Unknown Verified 09/17/20 12:03 Sulfa (Sulfonamide Allergy Unknown Verified 09/17/20 12:03 Antibiotics) Review of Systems - Constitutional Constitutional: reports: Weight loss (weight 205lb). denies: Fever - Eyes Eyes: denies: Corrective lenses - Ears, Nose & Throat Ears, Nose & Throat: denies: Hearing aids - Cardiovascular Cardiovascular: denies: Chest pain - Respiratory Respiratory: denies: Cough - Gastrointestinal Gastrointestinal: reports: Good appetite. denies: Abdominal pain, Constipation - Genitourinary Genitourinary: reports: Incontinence. denies: Dysuria - Musculoskeletal Musculoskeletal: reports: Assistive devices, Transfer issues. denies: Back pain, Joint pain - Integumentary Integumentary: reports: Pigment changes (chronic BLE due to venous stasis) - Neurological Neurological: reports: General weakness, Memory problems - Psychiatric Psychiatric: reports: Depression - Endocrine Endocrine: reports: Diabetes type 2, Hypothyroidism - All Other Systems All Other Systems: reports: Reviewed and negative (Review of systems is limited as patient is a poor historian due to dementia. Review of systems supplemented by caregiving and nursing staff at facility.Review of systems is limited as patient is a poor historian due to dementia. Review of systems supplemented by caregiving and nursing staff at [facility]) Physical Exam - Vital Signs Temperature: 36.7 C Pulse Rate: 78 O2 Saturation: 95 (on RA at rest) Blood Pressure: 103/62 (left wrist cuff sitting) - Physical Exam General Appearance: positive: No acute distress, Alert, Other (OOB sitting at dinning table sitting in wheelchair with gait belt in place) Eyes Bilateral: positive: Normal inspection ENT: positive: No signs of dehydration Neck: positive: Trachea midline Cardiovascular: positive: Regular rate & rhythm, Other (distant heart sounds) Respiratory: positive: No respiratory distress, Breath sounds nml. negative: Rales Abdomen: positive: Non-tender, Soft, Nml bowel sounds, Obese Skin: positive: Other (chronic venous stasis changes BLE) Extremities: positive: Pedal edema (trace BLE edema with LE in dependent position), Other (+crepitus b/l knees without tenderness or warmth to palpation) Neurologic/Psychiatric: positive: Disoriented to place, Disoriented to time, Other (pleasantly confused, did not recognize her djkhbep-hz-ajo on the phone today) Palliative Care - POLST Patient has POLST: Yes POLST Status: DNR, Comfort Measures Pain: No pain (controlled with routine acetaminophen) Depression: None Constipation: No, Managed Performance Status: She is able to sit to stand for transfers to her wheelchair. She is able to self feed. She is incontinent of urine. No recent falls. F AST 7C - Palliative Care Discussion: The patient continues to have a slow, gradual weight loss and the need for dose reduction of of her Lantus last performed 09/04/2020. Her last hemoglobin A1c was reported at 6.4%. She continues to have a hearty appetite. The patient was noted to have a lower reading for her blood pressure today. She denied any cardiac complaints. Given the patient's subtle weight loss that has overall stablized, She would benefit from further monitoring of her blood pressure trends to evaluate for deprescribing of her antihypertensive medication. The patient's vbgnlhq-wg-mpq, Catalino is her DPOA. He was able to speak to the patient via phone during today's visit. She did not recognize her zqrlpzc-ff-fgi but did smile in the context of the conversation with perceived recognition. It has been difficult for the sfrrrpk-os-rfn due to the coronavirus he is unable to visit due to restrictions. He recognizes that the facility is providing optimal care and that the patient herself is in a safe space. Results - Lab Results Lab results reviewed: Yes Lab and Imaging Results: 09/07/2020 Hemoglobin A1c 6.4% Impression and Recommendations - Palliative Care Impression: This is a 79-year-old female with a history of dementia with weight loss that has overall stabilized to 205 pounds. She has a history of diabetes mellitus that has required dose reduction of her Lantus due to subtle weight loss despite good oral intake. She has not had any evidence of hyper or hypoglycemic events. The patient herself appears to be comfortable. Palliative care to continue provide support for symptom management and anticipatory guidance. Recommendations/Counseling Done: 1.Bilateral lower extremity edema. Continue weekly weights. Minor evidence of lower extremity edema today. Continue furosemide 20 mg daily. Continue to monitor weight trends and adjust diuretic therapy as needed for symptom management. 2. Hypertension. Noted blood pressure reading of 103/62 today. Patient without cardiac complaints. Given subtle weight loss trends request that blood pressure and heart rate be obtained daily and recorded for 14 days to evaluate if patient may have dose reduction of her lisinopril. Request that blood pressure trends to be faxed to this PAGINATOR for review in 14 days and will follow up. 3. Diabetes mellitus. Patient has a longstanding history. Last hemoglobin A1c 6.4% on 09/07/2020. Goal hemoglobin A1c is 7 to 8% given the patient's advanced age. No evidence of hyper or hypoglycemic symptoms. Continue Lantus at 35 units in the morning and 20 units every evening and hold if blood glucose levels are less than 100. Continue to monitor and adjust Lantus dosing based on blood glucose level trends. 4. Insomnia. Stable. Continue trazodone 25 mg nightly. 5. Dementia. Chronic. Progressive. Supportive care. Fall precautions. No behavioral concerns reported by staff no reports of agitation or anxiety. Continue citalopram and trazodone as ordered. No disease modifying agents. Given the patient's advanced age, dementia and chronic liver disease a gradual decline is expected. 6. Advanced care planning. POLST in place as DN AR with comfort measures. Patient's stnckfx-un-ksd/DPOA wishes to focus on comfort measures. Continue to build rapport with fxkbtsx-eb-zww and provide supportive listening. Further evaluate for additional deprescribing in the future such as trospium in the future due to patient's advanced of dementia and benefit vs potential side effects. Time Spent: CPT 23227 Plan of care reviewed with nursing staff with questions answered and addressed. Plan of care with reviewed with dcpxrol-tx-pjj/DPOACatalino in the presence of the patient with questions answered and addressed with verbalized understanding. This PAGINATOR is listed as the patient's PCP on her DEC. Request that facility change to Dr. Allen as palliative care is a consulting service and cannot act as the patient's PCP. Disclaimer: The chart note was formulated using voice recognition technology and unfortunately sound alike errors may occur.
== END 2020-09-17 09:11 | disposition home or self-care (01) ==
LOC: PC 09:10
PROVIDERS: ATTEND Nurse Practitioner Family
DX: Z51.5 Encounter for palliative care (principal); R60.0 Localized edema; I12.9 Hypertensive chronic kidney disease with stage 1 through stage 4 chronic kidney disease, or unspecified chronic kidney disease; E11.22 Type 2 diabetes mellitus with diabetic chronic kidney disease; E11.42 Type 2 diabetes mellitus with diabetic polyneuropathy; G47.00 Insomnia, unspecified; F03.90 Unspecified dementia, unspecified severity, without behavioral disturbance, psychotic disturbance, mood disturbance, and anxiety; N18.9 Chronic kidney disease, unspecified; Z79.4 Long term (current) use of insulin; Z66 Do not resuscitate

== ENCOUNTER 2020-12-05 11:10 | Outpatient (CLI) | payer MEDICARE ==
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
== END 2020-12-05 11:11 | disposition home or self-care (01) ==
LOC: PC 11:10
PROVIDERS: ATTEND Nurse Practitioner Family
DX: Z51.5 Encounter for palliative care (principal); E11.42 Type 2 diabetes mellitus with diabetic polyneuropathy; I12.9 Hypertensive chronic kidney disease with stage 1 through stage 4 chronic kidney disease, or unspecified chronic kidney disease; E11.22 Type 2 diabetes mellitus with diabetic chronic kidney disease; N18.9 Chronic kidney disease, unspecified; R32 Unspecified urinary incontinence; N32.81 Overactive bladder; F03.91 Unspecified dementia, unspecified severity, with behavioral disturbance; Z79.4 Long term (current) use of insulin; Z66 Do not resuscitate

== ENCOUNTER 2021-01-22 09:40 | Outpatient (CLI) | payer MEDICARE ==
--- NOTE | 2021-01-22 15:55 | CONSULTATION NOTE ---
Palliative Care Follow Up - Referral Referring Provider: Dr. Cristian Allen Time of Visit: Intiated 0940 Referral setting: Assisted living Referral Reason: HTN/Diabetes Mellitus Type II/Dementia - Information Sources Records reviewed: Previous records reviewed History/Review of Systems obtained from: Patient, Caregiver, Nursing Exam limitations: Clinical condition (Advanced Dementia) - History of Present Illness Update Brief HPI Update: This is a 80-year-old female who was seen and evaluated today at home [facility] for follow-up regarding diabetes mellitus type 2 and hypertension in the setting of advanced dementia. The patient has a history of type 2 diabetes mellitus and is presently on 30 units of Lantus in the morning and 20 units of Lantus in the evening. Her last hemoglobin A1c was obtained on 09/07/2020 and was 6.4%. Upon review of her most recent blood glucose levels she has not had any documented episodes of hypoglycemia. Her highest blood glucose level recorded was 227. She last had a reduction of her Lantus on December 06, 2020. The patient continues to be stabilized regarding her weight. Her last weight was 204 documented on 01/21/2021. No reports of dysphagia during meals. Her lisinopril was reduced from 20 mg to 10 mg due to noted lows with the patient's blood pressure readings. Since reduction of her lisinopril dose her systolic blood pressure has ranged 105-135/51-77. She denies reports of headache or dizziness. The patient previously has had reports of issues with insomnia. She in the past has been on melatonin without positive benefit. She was started on trazodone for sleep in December 2019. Staff deny that she no longer has any difficulty with sleeping or agitated behaviors in the evening. The patient is seen in the common area in her wheelchair, well-groomed without acute distress. Past Medical History: Patient has a past medical history that includes hypertension, hyperlipidemia, dementia, peripheral neuropathy, type 2 diabetes mellitus, hypothyroidism, incontinence, chronic kidney disease, overactive bladder, depression, insomnia, fibromyalgia, spinal stenosis, history of ITP. Social History - Living Situation Living arrangement: Assisted living Support System: [facility]. She previously resided at [facility]. She grew up in the [facility]. She is and has no children. Her opxivss-mh-cdz, Catalino is her DPOA with contact number [phone]. Medications/Allergies - Medications Home Medications: Ambulatory Orders Medication Instructions Recorded Confirmed Citalopram [CeleXA] 20 mg PO DAILY 04/25/18 09/17/20 Trospium Chloride 20 mg PO QPM 04/25/18 09/17/20 lisinopriL [Lisinopril] 10 mg PO DAILY 04/25/18 09/17/20 Acetaminophen [Tylenol] 650 mg PO Q6H PRN 01/22/20 09/17/20 Albuterol Sulfate [Albuterol 1 puffs IN Q4H PRN 01/22/20 09/17/20 Sulfate Hfa] Bisacodyl Supp [Dulcolax Supp] 10 mg ND DAILY PRN 01/22/20 09/17/20 Furosemide 20 mg PO DAILY 01/22/20 09/17/20 Guaifenesin/Dextromethorphan 10 ml PO Q6H PRN 01/22/20 09/17/20 [Guaifenesin-Dm 100-10 mg/5 ml] Insulin Glargine [Lantus Solostar] 20 units SQ QPM MDD Hold if BG 01/22/20 09/17/20 less than 100mg/dL Insulin Glargine [Lantus Solostar] 30 units SQ QDAC MDD Hold if BG 01/22/20 09/17/20 100mg/dL Loperamide HCl [Loperamide] PRN 01/22/20 Mag Hydrox/Aluminum Hyd/Simeth 30 ml PO Q4H PRN 01/22/20 09/17/20 [Antacid Anti-Gas Liquid] Magnesium Hydroxide [Milk of 30 ml PO DAILY PRN MDD No BM after 01/22/20 09/17/20 Magnesia] 3 days Pramipexole Di-HCl [Mirapex] 0.125 mg PO QPM 01/22/20 09/17/20 Thyroid,Pork [Arley Thyroid] 90 mg PO DAILY 01/22/20 09/17/20 Acetaminophen 650 mg PO TID 02/10/20 01/22/21 Senna [Senokot] 8.6 mg PO DAILY MDD hold for loose 02/10/20 09/17/20 stools - Allergies Allergies/Adverse Reactions: Allergies Allergy/AdvReac Type Severity Reaction Status Date / Time clindamycin Allergy Unknown Verified 01/22/21 15:58 desipramine Allergy Unknown Verified 01/22/21 15:58 nortriptyline Allergy Unknown Verified 01/22/21 15:58 oxybutynin Allergy Unknown Verified 01/22/21 15:58 Sulfa (Sulfonamide Allergy Unknown Verified 01/22/21 15:58 Antibiotics) Review of Systems - Constitutional Constitutional: reports: Weight stable (weight 204lb on 01/21/21 after weight loss trend has stablized). denies: Fever - Eyes Eyes: denies: Corrective lenses - Ears, Nose & Throat Ears, Nose & Throat: denies: Hearing aids - Cardiovascular Cardiovascular: reports: Edema. denies: Chest pain - Respiratory Respiratory: denies: Cough - Gastrointestinal Gastrointestinal: reports: Good appetite. denies: Abdominal pain, Constipation, Vomiting - Genitourinary Genitourinary: reports: Incontinence. denies: Dysuria - Musculoskeletal Musculoskeletal: reports: Assistive devices, Transfer issues. denies: Back pain, Joint pain - Integumentary Integumentary: reports: Pigment changes (chronic BLE due to venous stasis) - Neurological Neurological: reports: General weakness, Memory problems - Psychiatric Psychiatric: reports: Depression - Endocrine Endocrine: reports: Diabetes type 2, Hypothyroidism - Hematologic/Lymphatic Hematologic/Lymph: denies: Recurrent infections - All Other Systems All Other Systems: reports: Reviewed and negative (Review of systems supplemented by caregiving and nursing staff at facility as patient is a poor historian due to dementia) Physical Exam - Vital Signs Temperature: 36.9 C Pulse Rate: 77 O2 Saturation: 98 (on RA at rest) Blood Pressure: 142/79 (left wrist) - Physical Exam General Appearance: positive: No acute distress, Alert, Other (OOB in wheelchair in common area, overweight) Eyes Bilateral: positive: Normal inspection ENT: positive: No signs of dehydration Neck: positive: Trachea midline Cardiovascular: positive: Regular rate & rhythm, Other (distant heart sounds due to body habitus) Respiratory: positive: No respiratory distress, Breath sounds nml. negative: Wheezes Abdomen: positive: Non-tender, Soft, Nml bowel sounds, Obese Skin: positive: Other (chronic venous stasis changes BLE) Extremities: positive: Pedal edema (trace BLE edema). negative: Joint swelling Neurologic/Psychiatric: positive: Disoriented to place, Disoriented to time, Other (pleasantly confused, minimal responses to questions; no s/s of agitation or anxiety) Palliative Care - POLST Patient has POLST: Yes POLST Status: DNR, Comfort Measures Pain: No pain - Palliative Care Discussion: The patient's recent weight loss trends have stabilized with her last reported weight at 204 pounds on 01/21/2021. She continues to have a good overall oral intake and does not require any assistance with feeding. She has a history of insomnia and is no longer having any difficulty with sleep. She is on a low- dose of trazodone at 25 mg nightly and would benefit from a trial discontinuation to see if this is another medication that may be discontinued and the patient's rfwyyuj-vs-trf/DPOA is open to this trial. Recognizing, that if needed may reintroduce trazodone back for insomnia. She has done well with dose reduction of lisinopril to 10 mg daily without cardiac complaints and significant hypotension. She likely benefited from the stress reduction also due to her recent weight loss and requiring less antihypertensive management. Impression and Recommendations - Palliative Care Impression: This is a 80-year-old female with a history of dementia with stabilized weight at 204, FAS T7 C. She has a history of diabetes mellitus and hypertension. She has tolerated dose reduction of her Lantus has well as her antihypertensive medication, lisinopril. The patient herself appears to be comfortable. She is no longer having difficulty with insomnia at night and would benefit from trial discontinuation of trazodone. Palliative care to continue right support for symptom management, care coordination and anticipatory guidance. Recommendations/Counseling Done: 1. Diabetes mellitus type II. Patient has a longstanding history. Last hemoglobin A1c 6.4% on 09/07/2020. Goal hemoglobin A1c is 7 to 8% given the patient's advanced age. Continue Lantus 30 units in the morning and 20 units in the evening and hold if blood glucose levels are less than 100 mg/dL. Obtain hemoglobin A1c on 01/23/2021 and follow with results. 2. Hypertension. Patient without cardiac complaints. Weight remains stable at 204 pounds. Has tolerated dose reduction of lisinopril to 10 mg daily and would continue at 10 mg daily. Obtain BMP on 01/23/2021 and follow with results. Continue furosemide 20 mg daily for lower extremity edema. 3. Insomnia. Longstanding history. Presently controlled. Trial discontinuation of trazodone. Initiate trazodone 25 mg every other night x7 days then discontinue. Monitor for signs and symptoms of insomnia need to reinitiate trazodone. 4. Hypothyroidism. Weight remains stable. Presently on [employer] thyroid 90 mg tablets. Obtain TSH on 01/23/2021 and follow with results. 5. Dementia with behavioral disturbances. Chronic. Progressive. Supportive care. Fall precautions. Continue citalopram 20 mg daily as ordered. Trial reduction and discontinuation of trazodone. On no disease modifying agents. No evidence of anxiety or agitation reported by facility staff. Given the patient's advanced age, dementia and chronic comorbidities a gradual Uribe is expected. CPT 52478 Plan of care reviewed with facility [facility]. Contacted patient's hvjqxzg-lj-okd/DPOA, Catalino More and reviewed plan of care with agreement of trial discontinuation of trazodone for new medication reduction and obtainment of lab work. Questions answered and addressed with the patient's DPOA. Disclaimer: The chart note was formulated using voice recognition technology and unfortunately sound alike errors may occur.
== END 2021-01-22 09:41 | disposition home or self-care (01) ==
LOC: PC 09:40
PROVIDERS: ATTEND Nurse Practitioner Family
DX: Z51.5 Encounter for palliative care (principal); E11.42 Type 2 diabetes mellitus with diabetic polyneuropathy; I12.9 Hypertensive chronic kidney disease with stage 1 through stage 4 chronic kidney disease, or unspecified chronic kidney disease; E11.22 Type 2 diabetes mellitus with diabetic chronic kidney disease; N18.9 Chronic kidney disease, unspecified; E03.9 Hypothyroidism, unspecified; F03.91 Unspecified dementia, unspecified severity, with behavioral disturbance; Z79.4 Long term (current) use of insulin; Z66 Do not resuscitate

== ENCOUNTER 2021-03-19 13:20 | Outpatient (CLI) | payer MEDICARE ==
--- NOTE | 2021-03-19 19:20 | CONSULTATION NOTE ---
Palliative Care Follow Up - Referral Referring Provider: Dr. Cristian Allen Time of Visit: Initiated 1320 Referral setting: Assisted living Referral Reason: Diabetes Melitus Type II/OAB/Dementia - Information Sources Records reviewed: Previous records reviewed History/Review of Systems obtained from: Patient, Nursing (JACOB Lino) Exam limitations: Clinical condition (Advanced Dementia) - History of Present Illness Update Brief HPI Update: This is a 80-year-old female who was seen and evaluated today at [facility] for follow-up regarding diabetes mellitus type 2, overactive bladder and advanced dementia. The patient has a history of type 2 diabetes mellitus and is presently on 30 units of Lantus in the morning and 20 units of Lantus in the evening with hold parameters. She is required to have her Lantus held in the morning x3 episodes for the month of February thus far. She last had her Lantus adjusted December 15. Last hemoglobin A1c 01/24/2021 6.7%. The patient's present weight is 200 pounds. No reports of dysphagia during meals. The last evaluation her trazodone was discontinued in December 2020. There have been no reports of increased episodes of insomnia or agitated behaviors in the evening since discontinuation of trazodone. The patient is incontinent of bladder and there have been no reports of discoloration to her urine or dysuria during pericare. The patient is seen in the common area in her wheelchair with her gaze facing down with no evidence of acute distress. Past Medical History: Patient has a past medical history that includes hypertension, hyperlipidemia, dementia, peripheral neuropathy, type 2 diabetes mellitus, hypothyroidism, incontinence, chronic kidney disease, overactive bladder, depression, insomnia, fibromyalgia, spinal stenosis, history of ITP. Social History - Living Situation Living arrangement: Assisted living Support System: [facility] She previously resided at [facility]. She grew up in the [facility]. She is and has no children. Her olljmuc-ho-clb, Catalino is her DPOA with contact number [phone]. Medications/Allergies - Medications Home Medications: Ambulatory Orders Medication Instructions Recorded Confirmed Citalopram [CeleXA] 20 mg PO DAILY 04/25/18 09/17/20 Trospium Chloride 20 mg PO QPM 04/25/18 09/17/20 lisinopriL [Lisinopril] 10 mg PO DAILY 04/25/18 09/17/20 Acetaminophen [Tylenol] 650 mg PO Q6H PRN 01/22/20 09/17/20 Albuterol Sulfate [Albuterol 1 puffs IN Q4H PRN 01/22/20 09/17/20 Sulfate Hfa] Bisacodyl Supp [Dulcolax Supp] 10 mg IA DAILY PRN 01/22/20 09/17/20 Furosemide 20 mg PO DAILY 01/22/20 09/17/20 Guaifenesin/Dextromethorphan 10 ml PO Q6H PRN 01/22/20 09/17/20 [Guaifenesin-Dm 100-10 mg/5 ml] Insulin Glargine [Lantus Solostar] 18 units SQ QPM MDD Hold if BG 01/22/20 09/17/20 less than 100mg/dL Insulin Glargine [Lantus Solostar] 30 units SQ QDAC MDD Hold if BG 01/22/20 09/17/20 100mg/dL Loperamide HCl [Loperamide] PRN 01/22/20 Mag Hydrox/Aluminum Hyd/Simeth 30 ml PO Q4H PRN 01/22/20 09/17/20 [Antacid Anti-Gas Liquid] Magnesium Hydroxide [Milk of 30 ml PO DAILY PRN MDD No BM after 01/22/20 09/17/20 Magnesia] 3 days Pramipexole Di-HCl [Mirapex] 0.125 mg PO QPM 01/22/20 09/17/20 Thyroid,Pork [Glennie Thyroid] 90 mg PO DAILY 01/22/20 09/17/20 Acetaminophen 650 mg PO TID 02/10/20 01/22/21 Senna [Senokot] 8.6 mg PO DAILY MDD hold for loose 02/10/20 09/17/20 stools - Allergies Allergies/Adverse Reactions: Allergies Allergy/AdvReac Type Severity Reaction Status Date / Time clindamycin Allergy Unknown Verified 01/22/21 15:58 desipramine Allergy Unknown Verified 01/22/21 15:58 nortriptyline Allergy Unknown Verified 01/22/21 15:58 oxybutynin Allergy Unknown Verified 01/22/21 15:58 Sulfa (Sulfonamide Allergy Unknown Verified 01/22/21 15:58 Antibiotics) Review of Systems - Constitutional Constitutional: reports: Weight loss (weight 200lb; weight 204lb on 01/21/21). denies: Fever, Poor appetite - Eyes Eyes: denies: Corrective lenses - Ears, Nose & Throat Ears, Nose & Throat: denies: Hearing aids, Dentures - Cardiovascular Cardiovascular: reports: Edema. denies: Chest pain - Respiratory Respiratory: denies: Cough - Gastrointestinal Gastrointestinal: reports: Good appetite. denies: Constipation, Vomiting - Genitourinary Genitourinary: reports: Incontinence. denies: Dysuria, Hematuria - Musculoskeletal Musculoskeletal: reports: Assistive devices, Transfer issues. denies: Back pain, Joint pain - Integumentary Integumentary: reports: Pigment changes (chronic BLE due to venous stasis) - Neurological Neurological: reports: General weakness, Memory problems - Psychiatric Psychiatric: reports: Depression - Endocrine Endocrine: reports: Diabetes type 2, Hypothyroidism - All Other Systems All Other Systems: reports: Reviewed and negative (Review of systems supplemented by JACOB Lino as patient is a poor historian due to dementia) Physical Exam - Vital Signs Temperature: 36.4 C Pulse Rate: 80 O2 Saturation: 95 (on RA) Blood Pressure: 145/75 (left wrist cuff) - Physical Exam General Appearance: positive: No acute distress, Alert, Other (OOB in wheelchair in common area, overweight) Eyes Bilateral: positive: Normal inspection ENT: positive: No signs of dehydration Neck: positive: Trachea midline Cardiovascular: positive: Regular rate & rhythm, Other (distant heart sounds due to body habitus) Respiratory: positive: No respiratory distress, Breath sounds nml, Rales (RLL, trace) Abdomen: positive: Non-tender, Soft, Nml bowel sounds, Obese Skin: positive: Other (chronic venous stasis changes BLE) Extremities: positive: Pedal edema (trace BLE edema). negative: Joint swelling Neurologic/Psychiatric: positive: Disoriented to place, Disoriented to time, Other (pleasantly confused, minimal responses to questions; no s/s of agitation or anxiety) Palliative Care - POLST Patient has POLST: Yes POLST Status: DNR, Comfort Measures Pain: No pain Constipation: Managed - Palliative Care Discussion: The patient has tolerated discontinuation of trazodone 25 mg nightly without increase in any symptoms of insomnia or agitation in the evenings per facility staff. She has had some noted lows with her blood glucose levels and would benefit from dose reduction of her Lantus in the evening from 20 units to 18 units and to hold her blood glucose levels if it is less than 100 mg/dL. Discussed at length with the patient's usitimt-nq-elf/DPOA the desire to avoid any hypoglycemic event that may lead to an adverse event with understanding verbalized. Patient's jwettve-ys-pkb/DPOA had a recent onsite visit after almost a year of not being able to see the patient where he recognize the further decline cognitively of the patient. She did not engage much in conversation and did not appear to recognize her mgaglxo-ky-hlc during the visit. The rkrirfs-lu-izd is at peace knowing that she is comfortable and being well taken care of. Empathetic listening provided to the lrwkxar-fd-emx today. Results - Lab Results Lab results reviewed: Yes Lab and Imaging Results: 01/24/2021 Sodium 138, potassium 4.5, BUN 29, creatinine 1.12, glucose 194, hemoglobin A1c 6.7%, TSH 0.499 Impression and Recommendations - Palliative Care Impression: This is a 80-year-old female with a history of dementia, FAS T7 C. She has well-controlled diabetes mellitus type 2 and a benefit from further dose reduction of her Lantus to avoid risk of hypoglycemia. She would benefit from discontinuation of trospium given her advancement of her dementia and DPOA in agreement for trial. Palliative care to continue to provide support for symptom management, care coordination and anticipatory guidance. Recommendations/Counseling Done: 1. Diabetes mellitus type 2. Patient has a longstanding history. Last hemoglobin A1c 6.7% on 01/24/2021. Goal hemoglobin A1c of 7 to 8% given the patient's advanced age. Reduce Lantus to 18 units in the evening and continue Lantus 30 units in the morning and hold if blood glucose levels are less than 100 mg/dL. Continue to monitor. 2. Overactive bladder. Patient unable to verbalize any signs and symptoms of overactive bladder and at baseline has urinary incontinence due to her advanced dementia. To reduce medication burden and side effects DPOA/ghrebuh-xk-xto in agreement for trial discontinuation of trospium and monitoring the patient's response. 3. Insomnia. Longstanding history. Has tolerated discontinuation of trazodone and does not demonstrate any signs or symptoms to reinitiate medication. 4. Dementia with behavioral disturbances. Chronic. Progressive. Supportive care. Fall precautions. Continue citalopram 20 mg daily as ordered. On no disease modifying agents. No evidence of anxiety or agitation reported by facility staff. Patient's DPOA/wjzyjgk-ma-tap recognizes after year absence due to Covid19 further cognitive decline of the patient. Given the patient's advanced age, dementia and chronic comorbidities a gradual decline is expected. CPT 42261 Reviewed with facility [facility]. Contacted the patient's eopijtp-nr-hlp/DPOA Catalino Marisamegan and reviewed plan of care with agreement of trial discontinuation of trospium for medication reduction. Empathetic listening provided to patient's hycnril-sk-arh/DPOA and questions answered and addressed. Disclaimer: The chart note was formulated using voice recognition technology and unfortunately sound alike errors may occur.
== END 2021-03-19 13:21 | disposition home or self-care (01) ==
LOC: PC 13:20
PROVIDERS: ATTEND Nurse Practitioner Family
DX: Z51.5 Encounter for palliative care (principal); E11.42 Type 2 diabetes mellitus with diabetic polyneuropathy; E11.22 Type 2 diabetes mellitus with diabetic chronic kidney disease; I12.9 Hypertensive chronic kidney disease with stage 1 through stage 4 chronic kidney disease, or unspecified chronic kidney disease; N18.9 Chronic kidney disease, unspecified; N32.81 Overactive bladder; F03.91 Unspecified dementia, unspecified severity, with behavioral disturbance; Z79.4 Long term (current) use of insulin; Z66 Do not resuscitate

== ENCOUNTER 2021-04-15 15:50 | Outpatient (CLI) | payer MEDICARE ==
--- NOTE | 2021-04-15 17:36 | CONSULTATION NOTE ---
Palliative Care Follow Up - Referral Referring Provider: Dr. Cristian Allen Time of Visit: Initaited 1550 Referral setting: Assisted living Referral Reason: Wound left heel/Dementia - Information Sources Records reviewed: Previous records reviewed History/Review of Systems obtained from: Patient, Nursing (JACOB Lino) Exam limitations: Clinical condition (Advanced Dementia) - History of Present Illness Update Brief HPI Update: This is a 80-year-old female who was seen and [facility] due to open area to her left heel in the setting of diabetes mellitus type 2 and dementia at the request of facility staff. Staff noted today and open area to the patient's left heel that previously was a blister. She is nonambulatory. They cleanse the site in cover with gauze and wrapped with Kerlix. There has been some serosanguineous drainage. There has been no warmth or erythema to the site. The patient denies any discomfort to her heel per staff report. The patient has not developed any wounds in the past. Patient is seen resting in bed with both her heels floating on a pillow to o ffload. No evidence of acute distress. Past Medical History: Patient has a past medical history that includes hypertension, hyperlipidemia, dementia, peripheral neuropathy, type 2 diabetes mellitus, hypothyroidism, incontinence, chronic kidney disease, overactive bladder, depression, insomnia, fibromyalgia, spinal stenosis, history of ITP. Social History - Living Situation Living arrangement: Assisted living Support System: [facility]. She previously resided at [facility]. She grew up in the [facility]. She is and has no children. Her ikxqmsh-fi-xpm, Catalino is her DPOA with contact number [phone]. Medications/Allergies - Medications Home Medications: Ambulatory Orders Medication Instructions Recorded Confirmed Citalopram [CeleXA] 20 mg PO DAILY 04/25/18 09/17/20 Trospium Chloride 20 mg PO QPM 04/25/18 09/17/20 lisinopriL [Lisinopril] 10 mg PO DAILY 04/25/18 09/17/20 Acetaminophen [Tylenol] 650 mg PO Q6H PRN 01/22/20 09/17/20 Albuterol Sulfate [Albuterol 1 puffs IN Q4H PRN 01/22/20 09/17/20 Sulfate Hfa] Bisacodyl Supp [Dulcolax Supp] 10 mg [place] DAILY PRN 01/22/20 09/17/20 Furosemide 20 mg PO DAILY 01/22/20 09/17/20 Guaifenesin/Dextromethorphan 10 ml PO Q6H PRN 01/22/20 09/17/20 [Guaifenesin-Dm 100-10 mg/5 ml] Insulin Glargine [Lantus Solostar] 18 units SQ QPM MDD Hold if BG 01/22/20 09/17/20 less than 100mg/dL Insulin Glargine [Lantus Solostar] 30 units SQ QDAC MDD Hold if BG 01/22/20 09/17/20 100mg/dL Loperamide HCl [Loperamide] PRN 01/22/20 Mag Hydrox/Aluminum Hyd/Simeth 30 ml PO Q4H PRN 01/22/20 09/17/20 [Antacid Anti-Gas Liquid] Magnesium Hydroxide [Milk of 30 ml PO DAILY PRN MDD No BM after 01/22/20 09/17/20 Magnesia] 3 days Pramipexole Di-HCl [Mirapex] 0.125 mg PO QPM 01/22/20 09/17/20 Thyroid,Pork [[place] Thyroid] 90 mg PO DAILY 01/22/20 09/17/20 Acetaminophen 650 mg PO TID 02/10/20 01/22/21 Senna [Senokot] 8.6 mg PO DAILY MDD hold for loose 02/10/20 09/17/20 stools - Allergies Allergies/Adverse Reactions: Allergies Allergy/AdvReac Type Severity Reaction Status Date / Time clindamycin Allergy Unknown Verified 01/22/21 15:58 desipramine Allergy Unknown Verified 01/22/21 15:58 nortriptyline Allergy Unknown Verified 01/22/21 15:58 oxybutynin Allergy Unknown Verified 01/22/21 15:58 Sulfa (Sulfonamide Allergy Unknown Verified 01/22/21 15:58 Antibiotics) Review of Systems - Constitutional Constitutional: denies: Fever, Poor appetite - Eyes Eyes: denies: Corrective lenses - Cardiovascular Cardiovascular: reports: Edema. denies: Chest pain - Respiratory Respiratory: denies: Cough - Gastrointestinal Gastrointestinal: reports: Good appetite. denies: Constipation, Vomiting - Genitourinary Genitourinary: reports: Incontinence. denies: Dysuria, Hematuria - Musculoskeletal Musculoskeletal: reports: Assistive devices, Transfer issues. denies: Joint pain - Integumentary Integumentary: reports: Pigment changes (chronic BLE due to venous stasis), Other (wound to left heel) - Neurological Neurological: reports: General weakness, Memory problems - Psychiatric Psychiatric: reports: Depression - Endocrine Endocrine: reports: Diabetes type 2, Hypothyroidism - All Other Systems All Other Systems: reports: Reviewed and negative (Review of systems supplemented by JACOB Lino as patient is a poor historian due to dementia) Physical Exam - Vital Signs Temperature: 36.6 C Pulse Rate: 62 O2 Saturation: 95 (on RA) Blood Pressure: 114/74 (right wrist) - Physical Exam General Appearance: positive: No acute distress, Alert, Other ( overweight, in bed with heels offloaded) ENT: positive: No signs of dehydration Neck: positive: Trachea midline Cardiovascular: positive: Regular rate & rhythm Respiratory: positive: No respiratory distress, Breath sounds nml Abdomen: positive: Non-tender, Soft, Nml bowel sounds, Obese Skin: positive: Wound (Left heel lateral aspect appx 3.5cm circumference to heelwith bruising consistent with pressure/deep tissue injury with open area 1cm x0.6cm with trace serosanguinous discharge on dressing when removed. No bogginess or warmth to palpation. No surrounding erythema. Dressing applied.), Other (chronic venous stasis changes BLE) Extremities: positive: Pedal edema (trace BLE edema) Neurologic/Psychiatric: positive: Disoriented to place, Disoriented to time, Other (pleasantly confused, minimal responses to questions) Palliative Care - POLST Patient has POLST: Yes POLST Status: DNR, Comfort Measures Pain: No pain - Palliative Care Discussion: Patient has developed evidence of a deep tissue injury to her left heel as she is nonambulatory and is unable to offload appropriately and is at risk for skin breakdown. She does have an open area area to the site of the deep tissue injury without signs or symptoms of infection. Would benefit from local wound care as well as home health nursing for management. The patient is at risk for infection given her underlying diabetes mellitus type 2 however, her blood glucose levels have been well controlled. Impression and Recommendations - Palliative Care Impression: This is a 80-year-old female with a history of dementia, FAS T7 C. She has well-controlled diabetes mellitus type 2 with deep tissue injury to her left heel with an open area that would benefit from HH Nursing and local wound care. Palliative care to continue to provide support for symptom management, care coordination and anticipatory guidance. Recommendations/Counseling Done: 1. Pressure ulcer to left heel. To open site cleansed with normal saline, pat dry, cuts Xeroform to size and applied to open area, cover with Mepilex border gauze or light dressing with padding twice a week or as needed if soiled until healed. This [facility] provided local skin care and dressing application today with appropriate dating when the dressing and updated REPAIRER HELPER for management. Request that facility monitor for signs and symptoms of infection such as redness, pain to touch, or warmth to touch or any other concerns and notify PCP. Patient is at risk for infection due to her underlying diabetes mellitus. Will request that home health nursing, [facility], at the facility request be on site to follow and manage for wound care. 2. Deep tissue injury to left heel. Patient at risk for subsequent further skin breakdown due to her underlying dementia and nonambulatory status. Request that the facility obtain heel protectors and to offload the patient's bilateral heels while in bed to reduce further risk of skin breakdown. 3. Dementia with behavioral disturbances. Chronic. Progressive. Supportive care. Fall precautions. Continue citalopram 20 mg daily as ordered. On no disease modifying agents. Given the patient's advanced age, dementia and chronic comorbidities a gradual decline is expected. Face to Face: It would be a taxing and considerable effort for the patient to leave her facility setting due to her nonambulatory status. Request home health nursing for wound management and to evaluate and treat. CPT 23296 Reviewed with facility REPAIRER HELPERHolland Garza regarding POC Contacted the patient's mxmfmaq-pv-hgu/DPOA Catalino Cunninghammegan and reviewed plan of care with agreement of interventions and request for HH Nursing. Disclaimer: The chart note was formulated using voice recognition technology and unfortunately sound alike errors may occur. Disclaimer: The chart note was formulated using voice recognition technology and unfortunately sound alike errors may occur.
== END 2021-04-15 15:51 | disposition home or self-care (01) ==
LOC: PC 15:50
PROVIDERS: ATTEND Nurse Practitioner Family
DX: Z51.5 Encounter for palliative care (principal); E11.621 Type 2 diabetes mellitus with foot ulcer; E11.42 Type 2 diabetes mellitus with diabetic polyneuropathy; E11.22 Type 2 diabetes mellitus with diabetic chronic kidney disease; L97.428 Non-pressure chronic ulcer of left heel and midfoot with other specified severity; I12.9 Hypertensive chronic kidney disease with stage 1 through stage 4 chronic kidney disease, or unspecified chronic kidney disease; N18.9 Chronic kidney disease, unspecified; F03.91 Unspecified dementia, unspecified severity, with behavioral disturbance; Z79.4 Long term (current) use of insulin; Z66 Do not resuscitate

== ENCOUNTER 2021-04-21 14:00 | Outpatient (CLI) | payer MEDICARE ==
--- NOTE | 2021-04-21 16:20 | CONSULTATION NOTE ---
Palliative Care Follow Up - Referral Referring Provider: Dr. Cristian Allen Time of Visit: 1709-7910 Referral setting: Assisted living Referral Reason: Left heel deep tissue injury/ - History of Present Illness Update Brief HPI Update: This is a 80-year-old female who was seen and evaluated [facility] at [facility] due to worsening left deep tissue injury to her heel in the setting of diabetes mellitus type 2, controlled and advanced dementia. The patient was seen on 04/15 due to initial opening to the patient's left ear that had previously been a blister with some evidence of deep tissue injury but no signs or symptoms of cellulitis. Today, home health RN from [facility] ported redness of the patient's leg as well as tenderness to touch to the heel when performing wound care. The deep tissue injury and is now boggy and again sensitive to touch. Darwin JAMES was unaware of these changes. The patient is still consuming her meals requiring some increased assistance. The patient is presently having local skin care with normal saline patted dry, application of Xeroform and covered with a Mepilex border foam [place] similar dressing twice a week. Or if soiled. Was requested that the patient's left heel be offloaded and obtainment of a pressure reducing boot however, the staff has not obtained at the present time when questioned. Blood glucose levels remain as follows: 0600: 143, 122, 124, 132, 113, 114, 106 1800: 127, 173,224, 181, 133, 109 The patient is seen resting in bed with her left leg propped up on a pillow with her heel floating. No evidence of acute distress. She is calm and comfortable until her left heel is touched. Past Medical History: Patient has a past medical history that includes hypertension, hyperlipidemia, dementia, peripheral neuropathy, type 2 diabetes mellitus, hypothyroidism, incontinence, chronic kidney disease, overactive bladder, depression, insomnia, fibromyalgia, spinal stenosis, history of ITP. Social History - Living Situation Living arrangement: Assisted living Support System: [facility]. She previously resided at [facility]. She grew [facility] in the [facility]. She is and has no children. Her eecamfm-we-rdb, Catalino is her DPOA with contact number [phone]. Medications/Allergies - Medications Home Medications: Ambulatory Orders Medication Instructions Recorded Confirmed Citalopram [CeleXA] 20 mg PO DAILY 04/25/18 09/17/20 Trospium Chloride 20 mg PO QPM 04/25/18 09/17/20 lisinopriL [Lisinopril] 10 mg PO DAILY 04/25/18 09/17/20 Acetaminophen [Tylenol] 650 mg PO Q6H PRN 01/22/20 09/17/20 Albuterol Sulfate [Albuterol 1 puffs IN Q4H PRN 01/22/20 09/17/20 Sulfate Hfa] Bisacodyl Supp [Dulcolax Supp] 10 mg [place] DAILY PRN 01/22/20 09/17/20 Furosemide 20 mg PO DAILY 01/22/20 09/17/20 Guaifenesin/Dextromethorphan 10 ml PO Q6H PRN 01/22/20 09/17/20 [Guaifenesin-Dm 100-10 mg/5 ml] Insulin Glargine [Lantus Solostar] 18 units SQ QPM MDD Hold if BG 01/22/20 09/17/20 less than 100mg/dL Insulin Glargine [Lantus Solostar] 30 units SQ QDAC MDD Hold if BG 01/22/20 09/17/20 100mg/dL Loperamide HCl [Loperamide] PRN 01/22/20 Mag Hydrox/Aluminum Hyd/Simeth 30 ml PO Q4H PRN 01/22/20 09/17/20 [Antacid Anti-Gas Liquid] Magnesium Hydroxide [Milk of 30 ml PO DAILY PRN MDD No BM after 01/22/20 09/17/20 Magnesia] 3 days Pramipexole Di-HCl [Mirapex] 0.125 mg PO QPM 01/22/20 09/17/20 Thyroid,Pork [[place] Thyroid] 90 mg PO DAILY 01/22/20 09/17/20 Acetaminophen 650 mg PO TID 02/10/20 01/22/21 Senna [Senokot] 8.6 mg PO DAILY MDD hold for loose 02/10/20 09/17/20 stools Doxycycline Hyclate 100 mg PO BID MDD [id number] 04/21/21 04/21/21 Morphine Oral Soln [Roxanol] 2.5 mg PO Q4H PRN MDD or 1 hour 04/21/21 04/21/21 before dressing - Allergies Allergies/Adverse Reactions: Allergies Allergy/AdvReac Type Severity Reaction Status Date / Time clindamycin Allergy Unknown Verified 01/22/21 15:58 desipramine Allergy Unknown Verified 01/22/21 15:58 nortriptyline Allergy Unknown Verified 01/22/21 15:58 oxybutynin Allergy Unknown Verified 01/22/21 15:58 Sulfa (Sulfonamide Allergy Unknown Verified 01/22/21 15:58 Antibiotics) Review of Systems - Constitutional Constitutional: reports: Weight loss (weight 197lb 03/26/2021; 204lb 01/21/2021). denies: Fever, Poor appetite - Eyes Eyes: denies: Corrective lenses - Ears, Nose & Throat Ears, Nose & Throat: denies: Hearing aids - Cardiovascular Cardiovascular: denies: Chest pain, Edema - Respiratory Respiratory: denies: Wheezing - Gastrointestinal Gastrointestinal: reports: Good appetite (per staff still comsuming most meals but requiring more assistance). denies: Constipation, Vomiting - Genitourinary Genitourinary: reports: Incontinence. denies: Dysuria, Hematuria - Musculoskeletal Musculoskeletal: reports: Assistive devices, Transfer issues. denies: Joint pain - Integumentary Integumentary: reports: Pigment changes (chronic BLE due to venous stasis), Other (wound to left heel with tenderness to left heel to touch with spreading redness on left calf) - Neurological Neurological: reports: General weakness, Memory problems - Psychiatric Psychiatric: reports: Depression - Endocrine Endocrine: reports: Diabetes type 2, Hypothyroidism - All Other Systems All Other Systems: reports: Reviewed and negative (Review of systems supplemented by JACOB Lino as patient is a poor historian due to dementia) Physical Exam - Vital Signs Temperature: 36.4 C Pulse Rate: 73 O2 Saturation: 96 (on RA) Blood Pressure: 136/56 (left wrist) - Physical Exam General Appearance: positive: No acute distress, Alert, Other ( overweight, in bed with left heel elevated on a pillow to offload) Eyes Bilateral: positive: Normal inspection ENT: positive: No signs of dehydration Neck: positive: Trachea midline Cardiovascular: positive: Regular rate & rhythm Respiratory: positive: No respiratory distress, Breath sounds nml Abdomen: positive: Non-tender, Soft, Nml bowel sounds, Obese Skin: positive: Wound (Left heel lateral aspect appx 3.5cm circumference to heel consistent with pressure/deep tissue injury with tenderness to palpation and bogginess.+Surrounding erythma up to mid-phillips appx 17cm c/w cellulitis. Dressing to site. see HH RN notes for additional details.), Other (chronic venous stasis changes BLE) Extremities: positive: No pedal edema Neurologic/Psychiatric: positive: Disoriented to place, Disoriented to time, Other (pleasantly confused, minimal responses to questions) Palliative Care - POLST Patient has POLST: Yes POLST Status: DNR, Comfort Measures Pain: Comment (Pain to left heel with touch due to deep tissue injury) Constipation: Managed - Palliative Care Discussion: Approximately 6 days ago it was noted that the patient had developed deep tissue injury to her left heel with a minimal open area with wound care implemented and home health nursing requested through [facility] who is on site. Unf ortunately, the patient has developed signs and symptoms of further deep tissue injury to her left heel as well as signs and symptoms of cellulitis due to that affected heel. Lengthy discussion had with the patient's mwqtjii-os-ajh/DPOACatalino regarding next steps for plan of care. Given the patient is having tenderness to touch to her left heel and the goal to improve her comfort will initiate doxycycline 100 mg twice daily x10 days for cellulitis and comfort. The patient has several antibiotic drug allergies indicated including sulfa. Given the patient was displaying signs and symptoms of grimacing when touching her left heel and per nursing report on dressing change will initiate a MSIR 2.5 mg every 4 hours as needed as needed for pain and also to give 1 hour prior to dressing changes to optimize the patient's comfort and DPOA/uckaqcg-ji-tsz was in agreement of this plan. Given the patient's advanced dementia and other comorbidities the patient's hojizhq-va-rim/DPOA does not wish to have the patient transferred to the hospital nor to go to the wound care clinic for interventions as it would be distressing for the patient given her advanced dementia and instead wishes to focus on comfort within the facility. If the patient has evidence of decline then and no response to the oral antibiotic therapy and local skin care then the DPOA/umbebop-of-tix will wish to transfer to hospice services. Impression and Recommendations - Palliative Care Impression: This is a 80-year-old female with a history of dementia, FAS T7 C. She has well-controlled diabetes mellitus type 2 with deep tissue injury to her left heel and now with advancement of the deep tissue injury and cellulitus to her LLE. Given the patient's listed antibiotic drug allergies will initiate doxycyline 100mg BID x 10 days. Palliative care to continue to provide support for symptom management, care coordination and anticipatory guidance and a transition to hospice when appropriate. R Recommendations/Counseling Done: 1. LLE cellulitis 2/2 pressure ulcer and deep tissue injury to left heel. Several antibiotic drug allergies noted. No evidence of systemic infection as afebrile, no tachycardia, hypotension and hypoglycemia. Start doxycyline 100mg BID x 10 days. 2. Pressure ulcer to left heel. To open site cleansed with normal saline, pat dry, cuts Xeroform to size and applied to open area, apply skin prep to intact skin surrounding deep tissue injury, cover with Mepilex border gauze or like dressing with padding twice a week or as needed if soiled until healed. Followed by HH Nursing from [facility] and spoke to KD Ro at length. To Request channel marketing specialist with [facility] to assess. 3. Deep tissue injury to left heel. Patient at risk for subsequent further skin breakdown due to her underlying dementia and nonambulatory status. Heel protection that was requested had not been obtained. Discussed with patient's DPOA/brother in law about ordering pressure relieving boot to wear to left heel at all times and facility to assist with ordering for DPOA. Request that when boot is in place to check pedal pulse BID and record. Goal is to offload pressure. Given the patient's advanced dementia and other comorbidities with a focus on comfort, the DPOA wishes to manage within the facility setting with HH nursing and avoid transfer to the hospital or wound care clinic for management. Due to increased pain reported will start MSIR 2.5mg every 4 hours PRN for pain and to give 1 hour prior to dressing changes for comfort and purpose, dose and side effects with DPOA/Jyxbvmv-ar-Ujs with agreed with implementation. 4. Dementia with behavioral disturbances. Chronic. Progressive. Supportive care. Fall precautions. Continue citalopram 20 mg daily as ordered. On no disease modifying agents. Given the patient's advanced age, dementia and chronic comorbidities a gradual decline is expected. 5. Advanced Care Planning. POLST as DNAR with comfort measures. Discussed POC at length with DPOA/Ijwfnzr-vi-Ikm, Catalino regarding evidence of cellulitis and setting expectations that patient may decline due to underlying cellulitis and if this were to be be the case then Catalino would wish to focus on comfort with hospice in place. Total time spent 40 minutes with greater than 50% of this spent in counseling and coordination of care with HH KD Ro ([phone]), JACOB Guadalupe; examination of patient; wound management; pain and symptom management. Disclaimer: The chart note was formulated using voice recognition technology and unfortunately sound alike errors may occur.
== END 2021-04-21 14:01 | disposition home or self-care (01) ==
LOC: PC 14:00
PROVIDERS: ATTEND Nurse Practitioner Family
DX: Z51.5 Encounter for palliative care (principal); E11.42 Type 2 diabetes mellitus with diabetic polyneuropathy; E11.22 Type 2 diabetes mellitus with diabetic chronic kidney disease; E11.621 Type 2 diabetes mellitus with foot ulcer; L03.116 Cellulitis of left lower limb; I12.9 Hypertensive chronic kidney disease with stage 1 through stage 4 chronic kidney disease, or unspecified chronic kidney disease; N18.9 Chronic kidney disease, unspecified; F03.91 Unspecified dementia, unspecified severity, with behavioral disturbance; Z79.4 Long term (current) use of insulin; Z66 Do not resuscitate

== ENCOUNTER 2021-04-23 09:00 | Outpatient (CLI) | payer MEDICARE ==
--- NOTE | 2021-04-23 20:27 | CONSULTATION NOTE ---
Palliative Care Follow Up - Referral Referring Provider: Dr. Cristian Allen Time of Visit: Iniated 899 Referral setting: Assisted living Referral Reason: LLE cellulitis/Left heel deep tissue injury - Information Sources Records reviewed: Previous records reviewed History/Review of Systems obtained from: Caregiver, Nursing (JACOB Guadalupe) Exam limitations: Clinical condition (Advanced Dementia) - History of Present Illness Update Brief HPI Update: his is a 80-year-old female who was seen and evaluated today at [facility] due for follow up of LLE cellulitis and left heel deep tissue injury in the setting of diabetes mellitus type 2, controlled and advanced dementia. The patient was seen on 04/15 due to initial opening to the patient's left ear that had previously been a blister with some evidence of deep tissue injury but no signs or symptoms of cellulitis. On 04/21/2021 home health RN for J[facility] Villanueva reported erythema to LLE and sensitivity to touch when peforming wound care. A pressure relieving boot was ordered and has not yet arrived to the facility. She was started on doxycyline orally and has received approximately 4 doses. She has had reduction in her erythema to her LLE and she is no longer demonstrating discomfort when her left heel or foot or touched. There is also less warmth to p alpation to her LLE. The patient consumed 100% of her breakfast this morning. She continues with localized wound care with normal saline rinse, pat dry, along intact skin apply skinprep, apply xerofrom to open area and cover with mepilex border foam or similar dressing twice a week or soiled. Home Health RN Kayla present today to preform dressing change. The patient is seen resting in bed with her left leg propped up on a pillow with her heel floating. No evidence of acute distress. She is calm and comfortable without evidence of distress when her heel is touched. Past Medical History: Patient has a past medical history that includes hypertension, hyperlipidemia, dementia, peripheral neuropathy, type 2 diabetes mellitus, hypothyroidism, incontinence, chronic kidney disease, overactive bladder, depression, insomnia, fibromyalgia, spinal stenosis, history of ITP. Social History - Living Situation Living arrangement: Assisted living Support System: [facility] 2018. She previously resided at [facility]. She grew up in the [facility]. She is and has no children. Her [id number], Catalino is her DPOA with contact number [phone]. Medications/Allergies - Medications Home Medications: Ambulatory Orders Medication Instructions Recorded Confirmed Citalopram [CeleXA] 20 mg PO DAILY 04/25/18 09/17/20 Trospium Chloride 20 mg PO QPM 04/25/18 09/17/20 lisinopriL [Lisinopril] 10 mg PO DAILY 04/25/18 09/17/20 Acetaminophen [Tylenol] 650 mg PO Q6H PRN 01/22/20 09/17/20 Albuterol Sulfate [Albuterol 1 puffs IN Q4H PRN 01/22/20 09/17/20 Sulfate Hfa] Bisacodyl Supp [Dulcolax Supp] 10 mg ND DAILY PRN 01/22/20 09/17/20 Furosemide 20 mg PO DAILY 01/22/20 09/17/20 Guaifenesin/Dextromethorphan 10 ml PO Q6H PRN 01/22/20 09/17/20 [Guaifenesin-Dm 100-10 mg/5 ml] Insulin Glargine [Lantus Solostar] 18 units SQ QPM MDD Hold if BG 01/22/20 09/17/20 less than 100mg/dL Insulin Glargine [Lantus Solostar] 30 units SQ QDAC MDD Hold if BG 01/22/20 09/17/20 100mg/dL Loperamide HCl [Loperamide] PRN 01/22/20 Mag Hydrox/Aluminum Hyd/Simeth 30 ml PO Q4H PRN 01/22/20 09/17/20 [Antacid Anti-Gas Liquid] Magnesium Hydroxide [Milk of 30 ml PO DAILY PRN MDD No BM after 01/22/20 09/17/20 Magnesia] 3 days Pramipexole Di-HCl [Mirapex] 0.125 mg PO QPM 01/22/20 09/17/20 Thyroid,Pork [Arcade Thyroid] 90 mg PO DAILY 01/22/20 09/17/20 Acetaminophen 650 mg PO TID 02/10/20 01/22/21 Senna [Senokot] 8.6 mg PO DAILY MDD hold for loose 02/10/20 09/17/20 stools Doxycycline Hyclate 100 mg PO BID MDD [id number] 04/21/21 04/21/21 Morphine Oral Soln [Roxanol] 2.5 mg PO Q4H PRN MDD or 1 hour 04/21/21 04/21/21 before dressing - Allergies Allergies/Adverse Reactions: Allergies Allergy/AdvReac Type Severity Reaction Status Date / Time clindamycin Allergy Unknown Verified 01/22/21 15:58 desipramine Allergy Unknown Verified 01/22/21 15:58 nortriptyline Allergy Unknown Verified 01/22/21 15:58 oxybutynin Allergy Unknown Verified 01/22/21 15:58 Sulfa (Sulfonamide Allergy Unknown Verified 01/22/21 15:58 Antibiotics) Review of Systems - Constitutional Constitutional: reports: Weight loss (weight 197lb 03/26/2021; 204lb 01/21/2021). denies: Fever, Poor appetite - Eyes Eyes: denies: Corrective lenses - Ears, Nose & Throat Ears, Nose & Throat: denies: Hearing aids - Cardiovascular Cardiovascular: denies: Edema - Respiratory Respiratory: denies: Wheezing - Gastrointestinal Gastrointestinal: reports: Good appetite (consumed 100% of breakfast this AM). denies: Constipation, Vomiting - Genitourinary Genitourinary: reports: Incontinence. denies: Dysuria - Musculoskeletal Musculoskeletal: reports: Assistive devices, Transfer issues. denies: Joint pain - Integumentary Integumentary: reports: Pigment changes (chronic BLE due to venous stasis), Other (wound to left heel covered without tenderness to palpation with reduction in erythema up left chin. See nursing notes for full details.) - Neurological Neurological: reports: General weakness, Memory problems - Psychiatric Psychiatric: reports: Depression - Endocrine Endocrine: reports: Diabetes type 2, Hypothyroidism - All Other Systems All Other Systems: reports: Reviewed and negative (Review of systems supplemented by JACOB Lino as patient is a poor historian due to dementia) Physical Exam - Vital Signs Temperature: 36.7 C Pulse Rate: 63 Blood Pressure: 130/62 (right arm) - Physical Exam General Appearance: positive: No acute distress, Alert, Other ( overweight, in bed with left heel elevated on a pillow to offload) Eyes Bilateral: positive: Normal inspection ENT: positive: No signs of dehydration Neck: positive: Trachea midline Cardiovascular: positive: Regular rate & rhythm, Systolic murmur (soft 1/6 FARIDEH) Respiratory: positive: No respiratory distress, Breath sounds nml Abdomen: positive: Non-tender, Soft, Nml bowel sounds, Obese Skin: positive: Wound (Left heel deep tissue injury (see RN notes for full details). Surrounding erythema to mid-phillips has decreased in size and reducton in warmth to palpation.), Other (chronic venous stasis changes BLE) Extremities: positive: No pedal edema Neurologic/Psychiatric: positive: Disoriented to place, Disoriented to time, Other (pleasantly confused, minimal responses to questions) Palliative Care - POLST Patient has POLST: Yes POLST Status: DNR, Comfort Measures Pain: No pain (No longer demonstrating discomfort when left heel is touched due to cellulitis and deep tissue injury. Has PRN MSIR available for use.) - Palliative Care Discussion: The patient unfortunately developed a deep tissue injury to her left heel that resulted in a minimally open area progressed to left lower extremity cellulitis and worsening of her deep tissue injury. She has responded well to oral antibiotic therapy, doxycycline for cellulitis and comfort. She is no longer displaying signs and symptoms of discomfort during dressing changes or when her left heel is touched. She is also had reduction of erythema.She has as needed MSIR available to utilize as needed for pain every 4 hours or 1 hour prior to a dressing change. She is continued to be followed by home health nursing. The patient's [id number]/DPOA wishes to focus on comfort with in the home environment and does not wish the patient to be transferred to the hospital or to go to wound care clinic for interventions. Impression and Recommendations - Palliative Care Impression: This is a 80-year-old female with a history of dementia, FAS T7 C. She has well-controlled diabetes mellitus type 2 with deep tissue injury to her left heel and cellulitus to her LLE. She has responded well to oral doxycyline with reduction in erythema 2/2 cellulitis. Palliative care to continue to provide support for symptom management, care coordination and anticipatory guidance and a transition to hospice when appropriate. Recommendations/Counseling Done: 1. LLE cellulitis 2/2 pressure ulcer and deep tissue injury to left heel. Improved with doxycyline 100mg BID x 10 days--complete course. 2. Pressure ulcer to left heel. To open site cleansed with normal saline, pat dry, cuts Xeroform to size and applied to open area, apply skin prep to intact skin surrounding deep tissue injury, cover with Mepilex border gauze or like dressing with padding twice a week or as needed if soiled until healed. Followed by HH Nursing from [place] with message left for Jia and updated KD Garza from [facility] regarding recommendations with questions answered and addressed. 3. Deep tissue injury to left heel. Patient at risk for subsequent further skin breakdown due to her underlying dementia and nonambulatory status. Pending pressure reliving boot for which the patient should wear constantly for protection of continued skin breakdown. Goal remains to offload pressure. Given the patient's advanced dementia and other comorbidities with a focus on comfort, the DPOA wishes to manage within the facility setting with HH nursing and avoid transfer to the hospital or wound care clinic for management. She has PRN MSIR to be utulized prior to dressing changes. 4. Dementia with behavioral disturbances. Chronic. Progressive. Supportive care. Fall precautions. Continue citalopram 20 mg daily as ordered. On no disease modifying agents. Given the patient's advanced age, dementia and chronic comorbidities a gradual decline is expected. CPT 46353 Plan of care reviewed with JACOB Granados with questions answered and addressed. Contacted the patient's bbcplan-nc-dpj/DPOA, Catalino Cunninghammegan at [phone] and updated regarding receding erythema due to left lower extremity cellulitis and continued plan moving forward with understanding verbalized and questions answered and addressed. Disclaimer: The chart note was formulated using voice recognition technology and unfortunately sound alike errors may occur.
== END 2021-04-23 09:01 | disposition home or self-care (01) ==
LOC: PC 09:00
PROVIDERS: ATTEND Nurse Practitioner Family
DX: Z51.5 Encounter for palliative care (principal); L03.116 Cellulitis of left lower limb; L89.626 Pressure-induced deep tissue damage of left heel; E11.9 Type 2 diabetes mellitus without complications; F03.91 Unspecified dementia, unspecified severity, with behavioral disturbance; Z79.899 Other long term (current) drug therapy; Z79.4 Long term (current) use of insulin; Z66 Do not resuscitate

== ENCOUNTER 2021-05-02 13:50 | Outpatient (CLI) | payer MEDICARE ==
--- NOTE | 2021-05-02 17:26 | CONSULTATION NOTE ---
Palliative Care Follow Up - Referral Referring Provider: Dr. Cristian Allen Time of Visit: Initated 1350 Referral setting: Assisted living Referral Reason: LLE cellulitis/Left heel deep tissue injury - Information Sources Records reviewed: Previous records reviewed History/Review of Systems obtained from: Patient, Caregiver, Nursing (HUMAN RESOURCE ASSISTANTKayla Lino and KD Hilton) Exam limitations: Clinical condition (Advanced Dementia) - History of Present Illness Update Brief HPI Update: This is a 80-year-old female who was seen and evaluated today at [facility] due for follow up of LLE cellulitis and left heel deep tissue injury in the setting of diabetes mellitus type 2, controlled, and advanced dementia. The patient was seen on 04/15 due to initial opening to the patient's left ear that had previously been a blister with some evidence of deep tissue injury but no signs or symptoms of cellulitis. On 04/21/2021 home health RN for Jia Villanueva reported erythema to LLE and sensitivity to touch when performing wound care. A pressure relieving boot was ordered and tooktime to arrive to the facility. She was started on doxycyline and has completed a 10 day course with resolution of LLE erythema and cellulitis. .She now has her pressure off loading boot in place to her left heel. Kay [facility] Tread Builder recommended changing wound care orders to be implemented today with use hydrofera blue to the wound bed with dressing changes three times per week and to be debrided by Kay immigration associate on Wednesday. She was pre-medicated with MSIR prior to this COMMERCIAL FINANCE MANAGER's arrival and did not display discomfort to touch to her left heel and appears comfortable. She continues to consume her meals per staff report. The patient is seen resting in bed with her left leg propped up on a pillow with her left heel in a pressure reducing boot. No evidence of acute distress. Past Medical History: Patient has a past medical history that includes hypertension, hyperlipidemia, dementia, peripheral neuropathy, type 2 diabetes mellitus, hypothyroidism, incontinence, chronic kidney disease, overactive bladder, depression, insomnia, fibromyalgia, spinal stenosis, history of ITP. Social History - Living Situation Living arrangement: Assisted living Support System: [facility] 2018. She previously resided at [facility]. She grew up in the [facility]. She is and has no children. Her [id number]-vp-ugl, Catalino is her DPOA with contact number [phone]. Her yxpjhcw-wr-csm visited yesterday and brought ch at are on her side dresser and this is a [employer] quote clerk now on the wall in her room. Medications/Allergies - Medications Home Medications: Ambulatory Orders Medication Instructions Recorded Confirmed Citalopram [CeleXA] 20 mg PO DAILY 04/25/18 09/17/20 Trospium Chloride 20 mg PO QPM 04/25/18 09/17/20 lisinopriL [Lisinopril] 10 mg PO DAILY 04/25/18 09/17/20 Acetaminophen [Tylenol] 650 mg PO Q6H PRN 01/22/20 09/17/20 Albuterol Sulfate [Albuterol 1 puffs IN Q4H PRN 01/22/20 09/17/20 Sulfate Hfa] Bisacodyl Supp [Dulcolax Supp] 10 mg MO DAILY PRN 01/22/20 09/17/20 Furosemide 20 mg PO DAILY 01/22/20 09/17/20 Guaifenesin/Dextromethorphan 10 ml PO Q6H PRN 01/22/20 09/17/20 [Guaifenesin-Dm 100-10 mg/5 ml] Insulin Glargine [Lantus Solostar] 18 units SQ QPM MDD Hold if BG 01/22/20 09/17/20 less than 100mg/dL Insulin Glargine [Lantus Solostar] 30 units SQ QDAC MDD Hold if BG 01/22/20 09/17/20 100mg/dL Loperamide HCl [Loperamide] PRN 01/22/20 Mag Hydrox/Aluminum Hyd/Simeth 30 ml PO Q4H PRN 01/22/20 09/17/20 [Antacid Anti-Gas Liquid] Magnesium Hydroxide [Milk of 30 ml PO DAILY PRN MDD No BM after 01/22/20 09/17/20 Magnesia] 3 days Pramipexole Di-HCl [Mirapex] 0.125 mg PO QPM 01/22/20 09/17/20 Thyroid,Pork [Jay Thyroid] 90 mg PO DAILY 01/22/20 09/17/20 Acetaminophen 650 mg PO TID 02/10/20 01/22/21 Senna [Senokot] 8.6 mg PO DAILY MDD hold for loose 02/10/20 09/17/20 stools Doxycycline Hyclate 100 mg PO BID MDD [id number] 04/21/21 04/21/21 Morphine Oral Soln [Roxanol] 2.5 mg PO Q4H PRN MDD or 1 hour 04/21/21 04/21/21 before dressing - Allergies Allergies/Adverse Reactions: Allergies Allergy/AdvReac Type Severity Reaction Status Date / Time clindamycin Allergy Unknown Verified 01/22/21 15:58 desipramine Allergy Unknown Verified 01/22/21 15:58 nortriptyline Allergy Unknown Verified 01/22/21 15:58 oxybutynin Allergy Unknown Verified 01/22/21 15:58 Sulfa (Sulfonamide Allergy Unknown Verified 01/22/21 15:58 Antibiotics) Review of Systems - Constitutional Constitutional: reports: Weight loss (weight 197lb 03/26/2021; 204lb 01/21/2021). denies: Fever, Poor appetite - Eyes Eyes: denies: Corrective lenses - Cardiovascular Cardiovascular: denies: Edema - Respiratory Respiratory: denies: Wheezing - Gastrointestinal Gastrointestinal: reports: Good appetite. denies: Constipation, Vomiting - Genitourinary Genitourinary: reports: Incontinence. denies: Dysuria - Musculoskeletal Musculoskeletal: reports: Assistive devices, Transfer issues. denies: Joint pain - Integumentary Integumentary: reports: Pigment changes (chronic BLE due to venous stasis), Other (Left heel deep tissue injury,see RN notes for full details; resolved erythema to LLE) - Neurological Neurological: reports: General weakness, Memory problems - Psychiatric Psychiatric: reports: Depression - Endocrine Endocrine: reports: Diabetes type 2, Hypothyroidism - All Other Systems All Other Systems: reports: Reviewed and negative (Review of systems supplemented by JACOB Lino and JACOB Hilton with Kay as patient is a poor historian due to dementia) Physical Exam - Vital Signs Temperature: 36.6 C Pulse Rate: 86 O2 Saturation: 98 (on RA) Blood Pressure: 128/64 (right arm) - Physical Exam General Appearance: positive: No acute distress, Alert, Other ( overweight, in bed with left heel offloaded in a boot) Eyes Bilateral: positive: Normal inspection ENT: positive: No signs of dehydration Neck: positive: Trachea midline Cardiovascular: positive: Regular rate & rhythm, Systolic murmur (soft 1/6 FARIDEH) Respiratory: positive: No respiratory distress, Breath sounds nml Abdomen: positive: Non-tender, Soft, Nml bowel sounds, Obese Skin: positive: Wound (Left heel deep tissue injury (see RN notes for full details) with callus appearing center with maceration surrounding central tissue injury with drainage and +odor. No surrounding erythema to left heel or up the phillips and without warmth to touch.), Other (chronic venous stasis changes BLE) Extremities: positive: No pedal edema Neurologic/Psychiatric: positive: Disoriented to place, Disoriented to time, Ot her (pleasantly confused, minimal responses to questions) Palliative Care - POLST Patient has POLST: Yes POLST Status: DNR, Comfort Measures Pain: Comment (Request that nursing make staff at [facility] aware prior to dressing changes for MSIR to be administered to ensure comfort.) Sleep: Sleeps well - Palliative Care Discussion: The patient unfortunately developed a deep tissue injury to her left heel that then eventually progressed to left lower extremity cellulitis and worsening of her deep tissue injury without adequate offloading. She has completed a 10-day course of doxycycline for cellulitis which has resolved. She continues to have injury to her left heel due to deep tissue injury and her presents wound care management is to change to Hydrofera Blue to the wound bed 3 times per week and the waste management specialist from [facility] is to perform a debridement on 05/05/2021. The patient has MSIR available to utilize as needed for pain every 4 hours and to be administered approximately 1 hour prior to dressing changes. She is to continue to be followed by [facility] nursing. The goal has previously stated by the patient's ikpggwr-ri-ifa/DPOA is to focus on comfort within the home environment as he does not wish to have the patient be transferred to the hospital or go to the wound care clinic for interventions. Impression and Recommendations - Palliative Care Impression: This is a 80-year-old female with a history of dementia, FAS T7 C. She has well-controlled diabetes mellitus type 2 with a deep tissue injury to her left heel and resolution of cellulitis to her left lower extremity. [facility] nursing is presently following for wound care management to the left heel and the patient now has a boot in place for pressure reduction and relief. Palliative care to continue to provide support for symptom management, care coordination and anticipatory guidance and a transition to hospice when appropriate. Recommendations/Counseling Done: 1. LLE extremity cellulitis secondary to pressure ulcer and deep tissue injury to left heel. Status post 10-day course of doxycycline. Resolved. 2. Deep tissue injury and pressure ulcer to left heel. New wound care order to irrigate with saline, pat dry, apply skin prep to surrounding intact tissue, apply Hydrofera Blue to wound bed 3 times per week and as needed if saturated and cover with bordered foam. Being followed by home health nursing from [place] and updated JACOB Hilton regarding findings on examination today as she plans to come later this afternoon to initiate new changes to wound wound care regiment. Patient is at risk for subsequent further skin breakdown due to her underlying dementia and nonambulatory status. She now has a pressure relieving boot in place that she is to wear consistently for protection to offload and per then further skin breakdown and allow for healing to her left lower extremity. The p anni's DPOA wishes to focus on comfort within the facility setting. physician specialist from [facility] to perform left wound heel debridement on 05/05. She has as needed MSIR to be utilized prior to dressing changes and as needed for pain. Continue to follow. 3. Dementia with behavioral disturbances. Chronic. Progressive. Supportive care. Fall precautions. Continue citalopram 20 mg daily as ordered. On no disease modifying agents. Given the patient's advanced age, dementia and chronic comorbidities a gradual decline is expected. [facility] nursing CPT 21241 Plan of care reviewed with JACOB Granados and JACOB Hilton with questions answered and addressed. Requested in gisselle Granados follow-up with [facility] nursing regarding plan days for dressing changes in the facility environment. Contacted the patient's wvvmgur-gx-kej/DPOA, Catalino More at [phone] and left message and awaiting return call to update regarding plan of care. Disclaimer: The chart note was formulated using voice recognition technology and unfortunately sound alike errors may occur.
== END 2021-05-02 13:51 | disposition home or self-care (01) ==
LOC: PC 13:50
PROVIDERS: ATTEND Nurse Practitioner Family
DX: Z51.5 Encounter for palliative care (principal); E11.42 Type 2 diabetes mellitus with diabetic polyneuropathy; E11.22 Type 2 diabetes mellitus with diabetic chronic kidney disease; I12.9 Hypertensive chronic kidney disease with stage 1 through stage 4 chronic kidney disease, or unspecified chronic kidney disease; N18.9 Chronic kidney disease, unspecified; E11.621 Type 2 diabetes mellitus with foot ulcer; L97.429 Non-pressure chronic ulcer of left heel and midfoot with unspecified severity; F03.91 Unspecified dementia, unspecified severity, with behavioral disturbance; Z79.4 Long term (current) use of insulin; Z66 Do not resuscitate

== ENCOUNTER 2021-05-19 14:00 | Outpatient (CLI) | payer MEDICARE ==
--- NOTE | 2021-05-19 17:31 | CONSULTATION NOTE ---
Palliative Care Follow Up - Referral Referring Provider: Dr. Cristian Allen Time of Visit: Intitiated 1400 Referral setting: Assisted living Referral Reason: Left foot cellulitis/Left heel DTI/Dementia - Information Sources Records reviewed: Previous records reviewed History/Review of Systems obtained from: Patient, Caregiver, Nursing Exam limitations: Clinical condition (Advanced Dementia) - History of Present Illness Update Brief HPI Update: This is a 80-year-old female who was seen and evaluated today at [facility] due to follow-up of left lower extremity cellulitis and left heel deep tissue injury in the setting of diabetes mellitus type 2, controlled and advanced dementia. The patient was seen on 04/15 due to initial opening at the patient's left heel that hadPreviously been a blister with some evidence of deep tissue injury. She was treated for cellulitis on 04/21 with a 10-day course with resolution of the cellulitis and is presently being followed by home health nursing with [facility] for wound care management. The patient was seen and evaluated byWound child care lead teacher with [facility] who reported bogginess and erythema at the site of the deep tissue injury at the heel with spreading erythema up to her ankle and she is reinitiated on doxycycline 100 mg twice daily x2 weeks as well as a probiotic for [facility]. She continues on Hydrofera Blue dressing 3 times per week by home health nursing. The dressing to her left heel is clean, dry, and intact today and unable to visualize the wound base. There is no evidence of erythema, warmth to touch, or edema with resolution of cellulitis. The patient does have her pressure reducing boot in place. Caregivers report that the patient has had some increased discomfort and has positively responded to administration of as needed MSIR 2.5 mg. She was receiving 2.5 mg MSIR 1 hour prior to dressing changes this is coordinated with home health nursing and facility [employer]. The patient continues to consume approximately 100% of her meals. She is however, having a decrease in her overall weight to presently 190.4 pounds on 05/13/2021. Her blood glucose levels continue to be controlled. The patient is seen resting in bed, alert with no evidence of acute distress. Her left heel is in her pressure relieving boot. Past Medical History: Patient has a past medical history that includes hypertension, hyperlipidemia, dementia, peripheral neuropathy, type 2 diabetes mellitus, hypothyroidism, incontinence, chronic kidney disease, overactive bladder, depression, insomnia, fibromyalgia, spinal stenosis, history of ITP. Social History - Living Situation Living arrangement: Assisted living Support System: [facility]. She previously resided at [facility]. She grew up in the [facility]. She is and has no children. Her [id number], Catalino is her DPOA with contact number [phone]. Medications/Allergies - Medications Home Medications: Ambulatory Orders Medication Instructions Recorded Confirmed Citalopram [CeleXA] 20 mg PO DAILY 04/25/18 09/17/20 Trospium Chloride 20 mg PO QPM 04/25/18 09/17/20 lisinopriL [Lisinopril] 10 mg PO DAILY 04/25/18 09/17/20 Acetaminophen [Tylenol] 650 mg PO Q6H PRN 01/22/20 09/17/20 Albuterol Sulfate [Albuterol 1 puffs IN Q4H PRN 01/22/20 09/17/20 Sulfate Hfa] Bisacodyl Supp [Dulcolax Supp] 10 mg SD DAILY PRN 01/22/20 09/17/20 Furosemide 20 mg PO DAILY 01/22/20 09/17/20 Guaifenesin/Dextromethorphan 10 ml PO Q6H PRN 01/22/20 09/17/20 [Guaifenesin-Dm 100-10 mg/5 ml] Insulin Glargine [Lantus Solostar] 18 units SQ QPM MDD Hold if BG 01/22/20 09/17/20 less than 100mg/dL Insulin Glargine [Lantus Solostar] 30 units SQ QDAC MDD Hold if BG 01/22/20 09/17/20 100mg/dL Loperamide HCl [Loperamide] PRN 01/22/20 Mag Hydrox/Aluminum Hyd/Simeth 30 ml PO Q4H PRN 01/22/20 09/17/20 [Antacid Anti-Gas Liquid] Magnesium Hydroxide [Milk of 30 ml PO DAILY PRN MDD No BM after 01/22/20 09/17/20 Magnesia] 3 days Pramipexole Di-HCl [Mirapex] 0.125 mg PO QPM 01/22/20 09/17/20 Thyroid,Pork [[place] Thyroid] 90 mg PO DAILY 01/22/20 09/17/20 Acetaminophen 650 mg PO TID 02/10/20 01/22/21 Senna [Senokot] 8.6 mg PO DAILY MDD hold for loose 02/10/20 09/17/20 stools Doxycycline Hyclate 100 mg PO BID MDD x14 days 04/21/21 04/21/21 Morphine Oral Soln [Roxanol] 2.5 mg PO Q4H PRN MDD or 1 hour 04/21/21 04/21/21 before dressing Morphine Oral Soln [Roxanol] 2.5 mg PO DAILY 05/19/21 05/19/21 - Allergies Allergies/Adverse Reactions: Allergies Allergy/AdvReac Type Severity Reaction Status Date / Time clindamycin Allergy Unknown Verified 01/22/21 15:58 desipramine Allergy Unknown Verified 01/22/21 15:58 nortriptyline Allergy Unknown Verified 01/22/21 15:58 oxybutynin Allergy Unknown Verified 01/22/21 15:58 Sulfa (Sulfonamide Allergy Unknown Verified 01/22/21 15:58 Antibiotics) Review of Systems - Constitutional Constitutional: reports: Weight loss (weight 190.4lb 05/13/2021; weight 197lb 03/26/2021; 204lb 01/21/2021). denies: Fever, Poor appetite - Eyes Eyes: denies: Corrective lenses - Cardiovascular Cardiovascular: denies: Edema - Respiratory Respiratory: denies: Cough - Gastrointestinal Gastrointestinal: reports: Good appetite (consuming appx 100% of meals). denies: Constipation, Vomiting - Genitourinary Genitourinary: reports: Incontinence. denies: Dysuria - Musculoskeletal Musculoskeletal: reports: Assistive devices, Transfer issues - Integumentary Integumentary: reports: Pigment changes (chronic BLE due to venous stasis), Other (Left heel deep tissue injury,see RN notes for full details; resolved erythema to LLE) - Neurological Neurological: reports: General weakness, Memory problems - Psychiatric Psychiatric: reports: Depression - Endocrine Endocrine: reports: Diabetes type 2, Hypothyroidism - All Other Systems All Other Systems: reports: Reviewed and negative (Review of systems supplemented by JACOB Lino and caregivers at [facility] as patient is a poor historian due to dementia.) Physical Exam - Vital Signs Temperature: 36.5 C Pulse Rate: 80 O2 Saturation: 98 (on RA) Blood Pressure: 152/89 - Physical Exam General Appearance: positive: No acute distress, Alert, Other ( overweight, in bed with left heel offloaded in a boot) Eyes Bilateral: positive: Normal inspection ENT: positive: No signs of dehydration Neck: positive: Trachea midline Cardiovascular: positive: Regular rate & rhythm, Systolic murmur (soft 1/6 FARIDEH) Respiratory: positive: No respiratory distress, Breath sounds nml, Diminished in bases Abdomen: positive: Non-tender, Soft, Nml bowel sounds, Obese Skin: positive: Wound (Left heel deep tissue injury (see RN notes for full details) with dressing C/D/I with mild odor. No surrounding erythema to left heel or up the phillips and without warmth to touch--resolved cellulitis.), Other (chronic venous stasis changes BLE) Extremities: positive: No pedal edema Neurologic/Psychiatric: positive: Disoriented to place, Disoriented to time, Other (pleasantly confused, minimal responses to questions) Palliative Care - POLST Patient has POLST: Yes POLST Status: DNR, Comfort Measures Pain: Comment (staff report pain controlled prior to dressing changes with use of MSIR 1 hour prior. However, increased discomfort noted by caregivers in AM and would benefit from routine administration of MSIR.) Anorexia: None Dyspnea: None Constipation: No, Managed - Palliative Care Discussion: The patient has almost completed her second course of oral antibiotics for cellulitis associated with her deep tissue injury to her left heel. She has a boot to offload her left heel. She is presently being followed by home health nursing for wound care management due to the left heel deep tissue injury. She is receiving MSIR 1 hour prior to dressing changes and as needed every 4 hours. Caregivers report some increased discomfort noted in the morning related to the patient's left heel and because of her positive response to as needed MSIR will initiate scheduled MSIR 2.5 mg in the morning. The patient's brot her-in-law/DPOA asked that the patient be comfortable and peaceful and to have symptom managed within the facility environment and to transition to hospice services when appropriate. Impression and Recommendations - Palliative Care Impression: This is a 80-year-old female with a history of dementia, FAS T7 C who has well-controlled diabetes mellitus type 2 with a deep tissue injury to her left heel and resolution of cellulitis to her left lower extremity. [facility] is presently following for wound care management to the left heel the patient has a boot in place for pressure reduction and relief. Staff is noticing some increased discomfort in the morning and therefore, would benefit from initiation of MSIR 2.5 mg scheduled in the a.m. with continuation of as needed MSIR as previously scheduled. The goal is to optimize the patient's comfort per the DPOA's request. Palliative care to continue provide support for symptom management, care coordination and anticipatory guidance with transition to hospice when appropriate. Recommendations/Counseling Done: 1. Left lower extremity cellulitis secondary to pressure ulcer and deep tissue injury to left heel. Almost on completing second course of doxycycline for 14 days. Continues on probiotic therapy. Cellulitis resolved. 2. Deep tissue injury and pressure ulcer left heel. Continue with wound care orders as previously ordered. Being followed by home health nursing from [facility]. Continue pressure relieving boot to wear constantly for protection to offload the left heel for prevention of further skin breakdown allow for healing of her left heel. Initiate MSIR 2.5 mg daily at 08 100 for pain. Continue MSIR 2.5 mg by mouth every 4 hours as needed for pain and to be administered 1 hour prior to dressing changes. Request that MSIR not be sent in for MAR to be updated. Presently blood glucose levels are well controlled. Continue to monitor. 3. Weight loss. Patient's present weight 190.4 pounds down from 203 in December 2020. Continues to have a slowly resolving deep tissue injury and pressor ulcer to left heel. Protein calorie malnutrition may be contributory. May consider additional protein sources to assist with healing if continues to persist. Continue to monitor weight loss trends. 4. Advanced care planning. Patient is is DN AR with comfort measures. Patient's DPOA/iasqiet-ez-uol wishes to focus on comfort and peace within the facility environment and to not have a transfer outside of the facility. Patient's [id number]/DPOA is in agreement to optimize comfort and initiation of routine MSIR to optimize the patient's comfort. Supportive listening provided to the patient's [id number]. [facility] CPT [id number] Plan of care reviewed with JACOB Granados with questions answered and addressed. Contacted patient's zporpgs-sy-tdp/DPOA, Catalino More at [phone] and updated regarding plan of care, medications with questions answered and addressed in agreement with plan of care moving forward. Disclaimer: The chart note was formulated using voice recognition technology and unfortunately sound alike errors may occur.
== END 2021-05-19 14:01 | disposition home or self-care (01) ==
LOC: PC 14:00
PROVIDERS: ATTEND Nurse Practitioner Family
DX: Z51.5 Encounter for palliative care (principal); L89.626 Pressure-induced deep tissue damage of left heel; L03.116 Cellulitis of left lower limb; R63.4 Abnormal weight loss; F03.90 Unspecified dementia, unspecified severity, without behavioral disturbance, psychotic disturbance, mood disturbance, and anxiety; E11.9 Type 2 diabetes mellitus without complications; Z79.4 Long term (current) use of insulin; Z79.899 Other long term (current) drug therapy; Z79.891 Long term (current) use of opiate analgesic; Z66 Do not resuscitate